=== PATIENT | female | born 1970 | race Caucasian/White ===

== ENCOUNTER → 2018-07-18 16:31 | Outpatient (REF) | payer SELFPAY | LOC: OM 16:31 | PROVIDERS: PCP Nurse Practitioner Family; Visit Provider Nurse Practitioner Family | DX: Z23 Encounter for immunization (principal) ==

== ENCOUNTER 2018-12-27 15:44 | Outpatient (REF) | payer OTHER, SELFPAY ==
--- NOTE | 2018-12-27 14:09 | PAPFT_PTH ---
PATIENT: Viktoriya Serrato LOC: [facility] U#:[id number] AGE/SX: 48/F ROOM: RE12/27/[address]: ELLIOT Trejo : 1970 BED: DIS: 12/27/2018 SPEC #: [id number] RECD: 12/28/18 12:57 STATUS: HAIDER BLACK #: [id number] RENETTA: 12/27/18 14:[address]: Jane Pitt DEPT: FORMERLY [facility], [facility] Cytology RECD BY: Lizet Parsons Tissues: 1 - CX/ENDOCX FOR PAP SMEARS Procedures: PAP THIN PREP/UVM Screening HPV DNA PROBE Comments: [id number]
== END 2018-12-27 16:04 ==
LOC: LBN 15:44
PROVIDERS: PCP Nurse Practitioner Family; Visit Provider Nurse Practitioner Family
DX: Z12.4 Encounter for screening for malignant neoplasm of cervix (principal); Z11.51 Encounter for screening for human papillomavirus (HPV)
CPT/HCPCS: 88142; 87624

== ENCOUNTER 2018-12-28 01:31 | Outpatient (CLI) | payer OTHER, SELFPAY ==
[2018-12-28 11:55] LABS: Anion Gap 10.4 mmol/L (3-11); BUN 16 mg/dL (7-18); CO2 25.6 mmol/L (21.0-32.0); CREATININE 0.84 mg/dL (0.55-1.02); Calcium 8.8 mg/dL (8.5-10.1); Chloride 107 mmol/L (98-107); Cholesterol 193 mg/dL (50-200); Glucose 92 mg/dL (70-100); HDL Cholesterol 54 mg/dL (40-60); LDL CHOLESTEROL 122 mg/dL (<100); Potassium 4.2 mmol/L (3.5-5.1); Sodium 143 mmol/L (136-145); Triglyceride 56 mg/dL (30-150)
== END 2018-12-28 01:51 ==
PROVIDERS: PCP Nurse Practitioner Family; Visit Provider Nurse Practitioner Family
DX: Z00.00 Encounter for general adult medical examination without abnormal findings (principal); Z13.228 Encounter for screening for other metabolic disorders; Z13.220 Encounter for screening for lipoid disorders; Z13.29 Encounter for screening for other suspected endocrine disorder; Z13.1 Encounter for screening for diabetes mellitus
CPT/HCPCS: 36415; 80048; 80061; 83721; 83036; 84439; 84443

== ENCOUNTER 2019-01-05 10:01 | Outpatient (CLI) | payer OTHER, SELFPAY ==
[2019-01-05 11:42] LABS: Bilirubin Negative (Negative); Blood Moderate (Negative); Clarity Cloudy; Glucose Negative (Negative); Ketones Negative (Negative); Leukocyte Esterase Small (Negative); Nitrite Negative (Negative); Specific Gravity 1.015 (1.005-1.025); Urobilinogen 0.2 EU/dL (Up TO 0.2); pH >= 9.0 (5-8)
[2019-01-05 11:56] LABS: Bacteria Moderate HPF (Negative); Epithelial Cells Few HPF (Negative); WBC >50 HPF (0-5)
[2019-01-05 11:57] LABS: C & S Indicated? Yes; Casts Negative LPF (Negative); Crystals Many Triple Phos HPF (Negative); Mucus Negative (Negative)
== END 2019-01-05 10:21 ==
PROVIDERS: PCP Nurse Practitioner Family; Visit Provider Family Medicine
DX: R31.9 Hematuria, unspecified (principal); R35.0 Frequency of micturition
CPT/HCPCS: 87077; 81003; 81015; 87086; 87186

== ENCOUNTER 2019-01-07 00:36 | Outpatient (CLI) | payer OTHER, SELFPAY ==
--- NOTE | 2019-01-07 17:30 | DI.MAMMO_ITS ---
SYMPTOMS/DIAGNOSIS: SCREENING, Z12.31 MAMMOGRAM: Mammograms were interpreted according to the usual protocol including computer analysis with CAD system, tomosynthesis and C view imaging. There are no priors for comparison. Breast density C. No suspicious masses or microcalcifications are seen. There are scattered calcifications seen in the both breasts. The skin and axilla are unremarkable. IMPRESSION: No definite evidence for malignancy. Yearly mammography is recommended. Category 2. MQSA ASSESSMENT OF FINDINGS: Negative with benign findings. Category 2. Patient will receive a letter notifying them of these results. Bi-RADS category C. The breasts are heterogeneously dense, which may obscure small masses.
== END 2019-01-07 00:56 ==
PROVIDERS: PCP Nurse Practitioner Family; Visit Provider Nurse Practitioner Family
DX: Z12.31 Encounter for screening mammogram for malignant neoplasm of breast (principal)
CPT/HCPCS: 77063; 77067

== ENCOUNTER 2019-01-15 12:45 | Outpatient (REF) | payer OTHER, SELFPAY ==
[2019-01-15 13:29] LABS: Bilirubin Negative (Negative); Blood Moderate (Negative); Clarity Sl Cloudy; Glucose Negative (Negative); Ketones Negative (Negative); Leukocyte Esterase Moderate (Negative); Nitrite Negative (Negative); Urobilinogen 0.2 EU/dL (Up TO 0.2)
[2019-01-15 13:47] LABS: WBC >50 HPF (0-5)
[2019-01-15 13:48] LABS: Bacteria Moderate HPF (Negative); C & S Indicated? No/Sq. Contamination; Crystals Negative HPF (Negative); Epithelial Cells Moderate HPF (Negative); Mucus Trace (Negative)
== END 2019-01-15 13:05 ==
LOC: LBN 12:45
PROVIDERS: PCP Nurse Practitioner Family; Visit Provider Family Medicine
DX: R30.0 Dysuria (principal); N39.0 Urinary tract infection, site not specified
CPT/HCPCS: 87077; 81003; 81015; 87086; 87186

== ENCOUNTER 2019-01-23 22:16 | Outpatient (REF) | payer OTHER, SELFPAY ==
[2019-01-23 21:24] LABS: Bilirubin Negative (Negative); Blood Small (Negative); Clarity Clear; Glucose Negative (Negative); Ketones Trace mg/dL (Negative); Leukocyte Esterase Negative (Negative); Nitrite Negative (Negative); Urobilinogen 0.2 EU/dL (Up TO 0.2)
[2019-01-23 21:32] LABS: Bacteria Negative HPF (Negative); C & S Indicated? No; Casts Negative LPF (Negative); Crystals Negative HPF (Negative); Epithelial Cells Few HPF (Negative); Mucus Negative (Negative); Other Cells Negative (Negative)
== END 2019-01-23 22:36 ==
LOC: LBN 22:16
PROVIDERS: PCP Nurse Practitioner Family; Visit Provider Family Medicine
DX: N39.0 Urinary tract infection, site not specified (principal)
CPT/HCPCS: 81003; 81015

== ENCOUNTER 2019-01-30 21:26 | Outpatient (REF) | payer OTHER, SELFPAY ==
[2019-01-30 21:29] LABS: Bilirubin Negative (Negative); Blood Negative (Negative); Clarity Clear; Glucose Negative (Negative); Ketones Negative (Negative); Leukocyte Esterase Negative (Negative); Nitrite Negative (Negative); Urobilinogen 0.2 EU/dL (Up TO 0.2)
== END 2019-01-30 21:46 ==
LOC: NCHCN 21:26
PROVIDERS: PCP Nurse Practitioner Family; Visit Provider Nurse Practitioner Family
DX: R31.9 Hematuria, unspecified (principal)
CPT/HCPCS: 81003

== ENCOUNTER 2019-02-25 19:27 | Outpatient (REF) | payer OTHER, SELFPAY | END 2019-02-25 19:47 | LOC: LBN 19:27 | PROVIDERS: PCP Nurse Practitioner Family; Visit Provider Nurse Practitioner Family | DX: R30.0 Dysuria (principal) | CPT/HCPCS: 87077; 87086; 87186 ==

== ENCOUNTER 2019-03-07 11:55 | Outpatient (REF) | payer OTHER, SELFPAY ==
[2019-03-07 13:03] LABS: Bilirubin Negative (Negative); Blood Negative (Negative); Clarity Clear; Glucose Negative (Negative); Ketones Negative (Negative); Leukocyte Esterase Negative (Negative); Nitrite Negative (Negative); Specific Gravity 1.015 (1.005-1.025); Urobilinogen 0.2 EU/dL (Up TO 0.2)
== END 2019-03-07 12:15 ==
LOC: LBN 11:55
PROVIDERS: PCP Nurse Practitioner Family; Visit Provider Nurse Practitioner Family
DX: N39.0 Urinary tract infection, site not specified (principal)
CPT/HCPCS: 81003

== ENCOUNTER 2019-03-08 11:39 | Outpatient (REF) | payer OTHER, SELFPAY ==
[2019-03-08 12:29] LABS: Bilirubin Negative (Negative); Blood Moderate (Negative); Clarity Sl Cloudy; Glucose Negative (Negative); Ketones Negative (Negative); Leukocyte Esterase Small (Negative); Nitrite Negative (Negative); Specific Gravity 1.025 (1.005-1.025); Urobilinogen 0.2 EU/dL (Up TO 0.2); pH 5.5 (5-8)
[2019-03-08 12:45] LABS: Bacteria Moderate HPF (Negative); C & S Indicated? C&S Done As Ordered; Casts Negative LPF (Negative); Crystals Negative HPF (Negative); Epithelial Cells Few HPF (Negative); Mucus Negative (Negative); RBC >50 (0-2); WBC >50 HPF (0-5)
== END 2019-03-08 11:59 ==
LOC: LBN 11:39
PROVIDERS: PCP Nurse Practitioner Family; Visit Provider Nurse Practitioner Family
DX: N39.0 Urinary tract infection, site not specified (principal)
CPT/HCPCS: 87077; 81003; 81015; 87086; 87186; 87480; 87510; 87660

== ENCOUNTER 2019-03-12 02:02 | Outpatient (CLI) | payer OTHER, SELFPAY ==
--- NOTE | 2019-03-12 11:22 | DI.US_ITS ---
SYMPTOMS/DIAGNOSIS: RECURRENT CYSTITIS; ASSESS FOR RENAL CALCULI, N30.90 RENAL ULTRASOUND: The prevoid bladder volume measures 257 cc. Both the ureteral jets were visualized. No bladder calculi are seen. The postvoid residual measures 5 cc. The right kidney measures 11 cm in length. No right renal calculi or hydronephrosis is seen. The left kidney shows several echogenic foci suspicious for calcifications. One area measures 11 mm in the mid portion of the left kidney. An additional 9 mm calcification is seen. There is no evidence of hydronephrosis or perinephric collection. IMPRESSION: Echogenic foci of the left kidney suspicious for renal calculi.
== END 2019-03-12 02:22 ==
PROVIDERS: PCP Nurse Practitioner Family; Visit Provider Nurse Practitioner Family
DX: N30.90 Cystitis, unspecified without hematuria (principal); N28.89 Other specified disorders of kidney and ureter
CPT/HCPCS: 76770

== ENCOUNTER 2019-04-26 01:41 | Outpatient (CLI) | payer OTHER, SELFPAY ==
--- NOTE | 2019-04-26 09:14 | DI.CT_ITS ---
SYMPTOM/DIAGNOSIS: ACUTE CYSTITIS WITH HEMATURIA N30.01 CT ABDOMEN AND PELVIS: Pre and post contrast CT scan was performed according to the CT urogram protocol. Comparison ultrasound is 03/12/19 There are a few nonobstructing stones seen in the left kidney. The largest is in the upper pole and measures 0.8 cm. No ureterolithiasis or hydronephrosis is identified. The urinary bladder is intact. No bladder stones are present. Contrast was then administered intravenously and venous imaging of the abdomen and pelvis was performed. No acute abnormality is seen in the lung bases. The liver is unremarkable. No suspicious hepatic mass is seen. The portal, superior mesenteric and splenic veins are patent. The gallbladder is negative. There is no biliary ductal dilatation. The pancreas, spleen and adrenal glands are unremarkable. The kidneys show normal and symmetric enhancement. No evidence of a solid renal mass is seen. There is mild cortical scarring of the left kidney. The urinary bladder is intact. The reproductive organs are unremarkable. There is mild arthrosclerosis of the abdominal aorta but no aneurysmal dilatation is present. No significant abdominal or pelvic adenopathy, ascites or pneumoperitoneum is present. The bowel shows no evidence of obstruction or inflammation. There is a normal appendix present. A small fat containing umbilical hernia is present. Degenerative changes are seen in the spine. 7-minute delayed images of the renal collecting system were performed. Note is made of right parapelvic cysts. No filling defects are seen in the collecting system. The urinary bladder is unremarkable without evidence of focal filling defect. IMPRESSION: 1. Left nephrolithiasis, no evidence of obstructive uropathy 2. Right parapelvic cysts. No evidence of a solid renal mass.
[2019-04-26] MEDS: Omnipaque 350 MG/ML 100 ML BTL IV (09:17)
== END 2019-04-26 02:01 ==
PROVIDERS: PCP Nurse Practitioner Family; Visit Provider Urology
DX: N30.01 Acute cystitis with hematuria (principal); N20.0 Calculus of kidney; N28.1 Cyst of kidney, acquired
CPT/HCPCS: 74178; J3490

== ENCOUNTER 2019-06-12 15:46 | Outpatient (REF) | payer OTHER, SELFPAY | END 2019-06-12 16:06 | LOC: LBN 15:46 | PROVIDERS: PCP Nurse Practitioner Family; Visit Provider Nurse Practitioner Family | DX: N30.90 Cystitis, unspecified without hematuria (principal) | CPT/HCPCS: 87077; 87086; 87186 ==

== ENCOUNTER 2019-06-13 06:10 | Day surgery (SDC) | payer OTHER, SELFPAY ==
[2019-06-13 06:34] VITALS: BP 149/90; PULSE 89; RESP 18; TEMP 36.5; O2SAT 95
[2019-06-13] MEDS: Lactated Ringers 1,000 ML 80 ML IV (06:53)
--- NOTE | 2019-06-13 07:07 | W.PM.DSUDISC ---
Discharge Plan Disposition Patient Disposition: HOME Condition: Stable Discharge Details Reason For Visit: surgery Attending Provider: Mau Luther Primary Care Provider: Jane Pitt Home Meds and New Rx's Prescriptions: No Action cephalexin 500 mg capsule 500 mg PO BID 7 Days Qty: 14 RF: 0 Multivitamin Pack RF: 0 Azo Cranberry 250 mg Tablet,Chewable 3 PO DAILY RF: 0 Discharge Instructions Additional Instructions: strain urine and bring fragment to office at followup visit followup with me @ 1 month with KUB at time of appt have patient continue full course of antibiotics as prescribed may use NSAIDS for post operative pain - call office if pain not controlled Activity:: Activity as Tolerated Shower/Bathe:: 24 hours Diet:: As Tolerated Discharge Orders Discharge Orders: Discharge Order (Routine); Ordered 06/13/19 Ordered By: Mau Luther DS: Diagnosis Discharge Diagnosis (1) Kidney stones: Status: Chronic
[2019-06-13] MEDS: ceFAZolin 2 GM/50 ML BAG IVPB (07:39)
[2019-06-13 08:22] VITALS: BP 131/70; PULSE 95; RESP 21; TEMP 36.6; O2SAT 95
[2019-06-13 08:27] VITALS: BP 132/72; PULSE 92; RESP 23; TEMP 36.6; O2SAT 95
[2019-06-13 08:32] VITALS: BP 140/81; PULSE 87; RESP 16; TEMP 36.7; O2SAT 95
[2019-06-13 09:20] VITALS: BP 136/77; PULSE 77; RESP 16; TEMP 36; O2SAT 92
--- NOTE | 2019-06-14 07:34 | ROE_ITS ---
REPORT OF OPERATIVE PROCEDURE DATE OF PROCEDURE June 13, 2019 PREOPERATIVE DIAGNOSIS Left kidney stone. POSTOPERATIVE DIAGNOSIS Left kidney stone. PROCEDURE PERFORMED Left extracorporeal shock wave lithotripsy. SURGEON Mau Luther M.D. ANESTHESIA General. COMPLICATIONS None. ESTIMATED BLOOD LOSS Minimal. HISTORY This is a 48-year-old woman who has a history of recurrent proteus urinary tract infections. On evalu ation, she was found to have a nonobstructing 8-mm stone in the left kidney. She presents now for ESW L. OPERATIVE REPORT The patient is brought to the operating room on 06/13/2019. After successful induction of general an esthesia, she was positioned on the [facility] Lithotripter bed. The stone was visualized using both fluoro scopically and ultrasound. Once the stone was positioned within the focal zone of the lithotripter. T he stone was treated with a total of 2500 shocks. We ranged the power setting from 1 to 20. The stone appeared to fragment quite nicely when it was viewed both fluoroscopically and sonographically. The patient tolerated the procedure well. There were no complications. CC: Jane Pitt M.D.
== END 2019-06-13 09:45 | disposition home or self-care (01) ==
PROVIDERS: PCP Nurse Practitioner Family; Visit Provider Urology
PROC: (CPT 50590; principal; 2019-06-13 07:30)
DX: N20.0 Calculus of kidney (principal); Z87.440 Personal history of urinary (tract) infections
CPT/HCPCS: 50590; J0131; J0690; J1100; J1885; J2250; J2405; J3010

== ENCOUNTER 2019-07-10 00:56 | Outpatient (CLI) | payer OTHER, SELFPAY ==
--- NOTE | 2019-07-10 07:31 | DI.RAD_ITS ---
SYMPTOM/DIAGNOSIS: S/P ESWL, N20.0, CALCULUS OF KIDNEY FPA: A single view was obtained. There is moderate fecal material overlying the kidneys. Possible left upper pole renal calcification versus fecal material. No other significant abnormality is seen.
== END 2019-07-10 01:16 ==
PROVIDERS: PCP Nurse Practitioner Family; Visit Provider Urology
DX: N20.0 Calculus of kidney (principal)
CPT/HCPCS: 74018

== ENCOUNTER 2020-01-31 02:05 | Outpatient (CLI) | payer OTHER, SELFPAY ==
--- NOTE | 2020-01-31 07:45 | DI.RAD_ITS ---
EXAM: 2D digital imaging was performed. CLINICAL HISTORY: monitor stone after ESWL. COMPARISON: CT ABDOMEN PELVIS WO/W from 04/26/2019 XR ABDOMEN FLAT PLATE from 07/10/2019 XR ABDOMEN FLAT PLATE from 07/10/2019 TECHNIQUE: Supine views of the abdomen performed. FINDINGS: BOWEL GAS PATTERN: Nondistended. CALCIFICATIONS: There is a calcification in the left upper quadrant just superior to the 12th rib reyna picious for a renal stone. No other urinary tract calculi are identified. The right kidney is large ly obscured due to overlying bowel. OSSEOUS STRUCTURES: Normal for age. OTHER FINDINGS: None. IMPRESSION: 1. Nonobstructive bowel gas pattern. 2. Calcification in the left upper quadrant suspicious for renal stone. It appears unchanged compared to the examination from 07/10/2019. DATA REPOSITORY: RADIATION DOSE DELIVERED:
== END 2020-01-31 02:25 ==
PROVIDERS: PCP Nurse Practitioner Family; Visit Provider Urology
DX: N20.0 Calculus of kidney (principal)
CPT/HCPCS: 74018

== ENCOUNTER 2020-03-29 19:24 | Emergency (ER) | payer OTHER, SELFPAY ==
[2020-03-29 19:30] VITALS: BP 164/107; PULSE 118; RESP 16; TEMP 36.7; O2SAT 97
--- NOTE | 2020-03-29 19:36 | ED.GENADUL_ITS ---
Discharge Plan Disposition Patient Disposition: HOME Condition: Stable Discharge Details Chief Complaint: Laceration Clinical Impression: Laceration of thumb Primary Care Provider: Jane Pitt ED Provider: Deana Garza Home Meds and New Rx's Prescriptions: No Action Multivitamin Pack 1 tab PO DAILY RF: 0 Discharge Instructions Instructions: Laceration (ED) Additional Instructions: Leave dressing in place for the first 12 to 24 hours. Tomorrow you can wash wound under running soap and water. No soaking. Allow to air dry for 1 to 2 hours every day. You may apply bacitracin ointment for the first 1 to 2 days. Return if any signs of infection increased redness, swelling or red streaks. Have sutures removed in 7 to 10 days be seen sooner if any worsening or concerns. Please take Tylenol or Ibuprofen with food every 4-6 hours as needed for pain and swelling. Referrals: Jane Pitt, [employer] BAIT PROCESSING SUPERVISOR [Primary Care Provider] - Discharge Data Discharge Date/Time-TO BE ENTERED AT DEPARTURE: 03/29/20 20:50 Medical Decision Making 49-year-old female presents with left thumb laceration. This occurred proximately 45 minutes prior to arrival while cutting lettuce. She has full range of motion noted to her thumb she is up-to-date on her tetanus vaccination had 1 last year. There is approximately 3 cm crescent shaped laceration with flap noted to the thumb pad. Bleeding controlled with pressure. Anesthesia achieved and turnicot applied for approximately 12 minutes. 5 simple interrupted sutures placed. Turnicot removed and nonadherent dressing applied. Discussed with patient to have sutures removed in 7 to 10 days given red flags to watch for and strict return instructions. Verbalized understanding. This text was generated using [employer] system, please disregard any oddities of phrase or misspellings. HPI General Mode of arrival: ambulatory . Date/Time Provider Initiated Documentation: 03/29/20 19:32 . Limitations to Documentation: no limitations . Information obtained by: patient . History of Present Illness 49 year old F presents to the emergency department with the chief complaint of Thumb laceration, described as moderate, with intensity rated at 7. Quality is described as sharp, and is localized to the left and upper extremity (thumb). Patient reports no radiation. Patient started experiencing this minute(s) (45) and it has been constant. Immobilization improves symptom(s), and other things that improve symptom(s), (Pressure) Movement worsens symptoms . Patient notes no other symptoms.. Patient did receive the following treatments prior to arrival, other (Applied pressure) HPI Narrative: 49-year-old female presents with left thumb laceration which occurred approximately 45 minutes prior to arrival. Patient states she was cutting some lettuce with a serrated knife. Related Data Home Medications Medication Instructions Recorded Confirmed Multivitamin Pack 1 tab PO DAILY 06/11/19 03/29/20 Allergies Allergy/AdvReac Type Severity Reaction Status Date / Time environmental Allergy Uncoded 06/13/19 06:25 General Stated Complaint: Laceration CLAUDIA: 4 Review of Systems Narrative: Constitutional: Negative for weight loss, alert and oriented, well groomed, normal body habitus, appears comfortable. Chest: Denies chest pain, palpitations, irregular rhythm, hypertension. Respiratory: Denies Shortness of breath, cough, hemoptysis. GI: Denies abdominal pain, nausea, vomiting, diarrhea, constipation. Integumentary/Breasts Skin/Breast: Reports as per HPI [facility] Medical History Carpal tunnel syndrome of right wrist (Resolved) Hyperlipidemia (Chronic) Kidney stones (Chronic) Prediabetes (Chronic) Proteus infection (Acute) Thoracic outlet syndrome (Resolved) Surgical History section (Inactive 12/13/93) Open Carpal Tunnel release (Inactive ~1988) Right Right rib resection (Inactive ~1988) [place] tooth extraction (Inactive) Family History Mother , at 62 from MVA No problems noted. Father Heart disease Myocardial infarction Sister Endometriosis Sister No problems noted. Brother No problems noted. Son No problems noted. Son No problems noted. Daughter No problems noted. Maternal Grandfather Colon cancer Maternal Grandmother No problems noted. Paternal Grandfather Skin cancer Paternal Grandmother Parkinson disease Social History Smoking/Tobacco Use Status: Former Tobacco Use Quit Date: 11/20/93 Second Hand Exposure: Yes Alcohol Intake: current Alcohol Intake frequency: holidays/special occasions only Alcohol type: hard liquor Drug use: Never Substance use type: does not use Caregiver/Support person: No Household members: spouse and children Housing: house Pets and animals: Yes Pets and animals: cat(s), dog(s) and horse(s) Sexually active: Yes Do you think of yourself as: straight/heterosexual Current gender identity: female What is your relationship status?: How often do you talk on the phone with friends or family?: three or more times per week How often do you get together with friends or relatives?: three or more times per week How often do you attend faith or buddhist services?: 4 or more times per year Do you belong to any clubs or organized social groups?: no Panel score (0-1 are the most socially isolated patients): 3 What type of physical activity do you participate in: walking and yoga Duration: 30-45 minutes/day Frequency: 5-6 times per week Katelynn/Moravian: Roman Catholic Special katelynn needs: No Do you feel safe at home: Yes Do you feel safe in your relationship?: Yes History History 3 Para Hx # Term Pregnancies Multiple births Hx # Pregnancies Ectopic pregnancies AB induced Hx Number of Living Children 3 AB spontaneous Exam Narrative Exam Narrative: Constitutional: Alert and oriented x3. Appears stated age. Normal body habitus. Head: Normocephalic, no trauma. Eyes: Pupils PERRLA, Red reflex noted, EOM's intact. Eyelids symmetrical without lesions, discharge, or swelling. ENT: Bilateral TM's WNL, External ear normal to inspection, no mastoid TTP, swelling, or erythema, Nasal turbinates WNL, no nasal discharge. Normal dentition, Posterior pharynx WNL, no exudate. Chest: RRR, Normal S1, S2, distal pulses intact. Resp: Lungs clear to auscultation bilaterally, no wheezes, rales, or rhonchi. Musculoskeletal: Normal gait, 5/5 strength to all four extremities. Skin: Approximately 2 to 2-1/2 cm laceration noted to the anterior thumb pad, actively bleeding, bleeding controlled with pressure. Neurologic: Cranial nerves II-XII intact. Alert and oriented x 3. DTR's intact. Hematologic/Lymphatic: No ecchymosis, no lymphadenopathy. Skin Trauma: laceration left anterior thumb Course Vital Signs Vital signs: Vital Signs Temperature 36.7 C 03/29/20 19:30 Pulse 118 H 03/29/20 19:30 Respiratory Rate 16 03/29/20 19:30 Blood Pressure 164/107 H 03/29/20 19:30 Pulse Oximetry 97 03/29/20 19:30 Temperature 36.7 C 03/29/20 19:30 Temperature Source Skin 03/29/20 19:30 Pulse 118 H 03/29/20 19:30 Respiratory Rate 16 03/29/20 19:30 Blood Pressure 164/107 H 03/29/20 19:30 Blood Pressure Position Sitting 03/29/20 19:30 Pulse Oximetry 97 03/29/20 19:30 Pain Level 3 03/29/20 19:30 Procedures Laceration Laceration 1: Site: hand (Left thumb) Side (If applicable): left Size (cm): 3 Description: flap, irregular and clean Depth: simple, single layer Local Anesthetic: Lidocaine 1% and other anesthetic (Bleeding controlled with a turnicot finger tourniquet was in place for approximately 12 minutes) Amount of anesthesia used (mL): 3 Pre-repair: wound explored, irrigated extensively and deep structures intact (Sensation and circulation returned upon removing the turnicot) Skin layer closed with: nylon Size (cm): 4-0 Number of sutures: 5 Technique: simple, interrupted
[2020-03-29] MEDS: Lidocaine 1% Multi-Dose 50 ML VIAL IJ (20:30)
== END 2020-03-29 20:50 | disposition home or self-care (01) ==
PROVIDERS: Emergency Provider Registered Nurse Emergency; PCP Nurse Practitioner Family
DX: S61.012A Laceration without foreign body of left thumb without damage to nail, initial encounter (principal); W26.0XXA Contact with knife, initial encounter; Y93.G1 Activity, food preparation and clean up
CPT/HCPCS: 12002

== ENCOUNTER 2020-04-07 16:36 | Emergency (ER) | payer OTHER, SELFPAY ==
[2020-04-07 16:39] VITALS: BP 167/93; PULSE 84; TEMP 36.7; O2SAT 99
--- NOTE | 2020-04-07 16:54 | ED.GENADUL_ITS ---
Discharge Plan Disposition Patient Disposition: HOME Condition: Stable Discharge Details Chief Complaint: SutureRem Clinical Impression: Encounter for removal of sutures Primary Care Provider: Jane Pitt ED Provider: Cesar Ortega Home Meds and New Rx's Prescriptions: No Action Multivitamin Pack 1 tab PO DAILY RF: 0 Discharge Instructions Instructions: Stitches Removal (ED) Additional Instructions: Sutures removed without difficulty. Keep the area clean and dry, you may change into the dressing daily. I do recommend wearing thumb splint for the next 3-5 days to avoid opening up the laceration. Please watch for new or worsening symptoms and return to the ER for any concerns Medical Decision Making Presents for a suture removal. Patient is neuro, vascular, tendon intact. 4 sutures intact, lacerations well approximated no signs of infection. 4 sutures removed without difficulty. Wound stayed well approximated. Given the location of the laceration over the PIP joint, will apply a thumb splint. Wound was dressed and thumb splint applied. Patient has no additional questions or concerns. Medical Records Medical records reviewed: Yes I reviewed the patient's medical records. HPI General Mode of arrival: ambulatory . Date/Time Provider Initiated Documentation: 04/07/20 16:54 . Limitations to Documentation: no limitations . Information obtained by: patient . HPI Narrative: 49-year-old female who presents for suture removal from her left thumb. Sutures were placed 8 days ago, a single suture fell out yesterday on its own. Currently asymptomatic, denies fever, chills, numbness, tingling, weakness, redness, wound discharge. Related Data Home Medications Medication Instructions Recorded Confirmed Multivitamin Pack 1 tab PO DAILY 06/11/19 03/29/20 Allergies Allergy/AdvReac Type Severity Reaction Status Date / Time environmental Allergy Uncoded 06/13/19 06:25 General Stated Complaint: SutureRem CLAUDIA: 5 Review of Systems Constitutional Constitutional: Denies fever(s) and Denies weakness Musculoskeletal Musculoskeletal: Denies numbness and Denies tingling Integumentary/Breasts Skin/Breast: Denies rash Neurologic Neurologic: Denies numbness, Denies tingling and Denies weakness [facility] Medical History Carpal tunnel syndrome of right wrist (Resolved) Hyperlipidemia (Chronic) Kidney stones (Chronic) Prediabetes (Chronic) Proteus infection (Acute) Thoracic outlet syndrome (Resolved) Surgical History section (Inactive 12/13/93) Open Carpal Tunnel release (Inactive ~1988) Right Right rib resection (Inactive ~1988) [place] tooth extraction (Inactive) Family History Mother , at 62 from MVA No problems noted. Father Heart disease Myocardial infarction Sister Endometriosis Sister No problems noted. Brother No problems noted. Son No problems noted. Son No problems noted. Daughter No problems noted. Maternal Grandfather Colon cancer Maternal Grandmother No problems noted. Paternal Grandfather Skin cancer Paternal Grandmother Parkinson disease Social History Smoking/Tobacco Use Status: Former Tobacco Use Quit Date: 11/20/93 Second Hand Exposure: Yes Alcohol Intake: current Alcohol Intake frequency: holidays/special occasions only Alcohol type: hard liquor Drug use: Never Substance use type: does not use Caregiver/Support person: No Household members: spouse and children Housing: house Pets and animals: Yes Pets and animals: cat(s), dog(s) and horse(s) Sexually active: Yes Do you think of yourself as: straight/heterosexual Current gender identity: female What is your relationship status?: How often do you talk on the phone with friends or family?: three or more times per week How often do you get together with friends or relatives?: three or more times per week How often do you attend spiritism or yazdanism services?: 4 or more times per year Do you belong to any clubs or organized social groups?: no Panel score (0-1 are the most socially isolated patients): 3 What type of physical activity do you participate in: walking and yoga Duration: 30-45 minutes/day Frequency: 5-6 times per week Katelynn/Rastafari: Moravian Special katelynn needs: No Do you feel safe at home: Yes Do you feel safe in your relationship?: Yes History History 3 Para Hx # Term Pregnancies Multiple births Hx # Pregnancies Ectopic pregnancies AB induced Hx Number of Living Children 3 AB spontaneous Exam Extrem Left upper extremity: hand Details: laceration (Thumb, well approximated, no signs of infection, 4 sutures) Course Vital Signs Vital signs: Vital Signs Temperature 36.7 C 04/07/20 16:39 Pulse 84 04/07/20 16:39 Blood Pressure 167/93 H 04/07/20 16:39 Pulse Oximetry 99 04/07/20 16:39 Temperature 36.7 C 04/07/20 16:39 Temperature Source Temporal Artery Scan 04/07/20 16:39 Pulse 84 04/07/20 16:39 Respiratory Effort Non-Labored 04/07/20 16:42 Blood Pressure 167/93 H 04/07/20 16:39 Blood Pressure Position Sitting 04/07/20 16:39 Pulse Oximetry 99 04/07/20 16:39 Oxygen Delivery Method Room Air 04/07/20 16:39 Oxygen Flow Rate 0 04/07/20 16:39 Pain Level 0 04/07/20 16:39
== END 2020-04-07 16:58 | disposition home or self-care (01) ==
LOC: ER 17:04
PROVIDERS: Emergency Provider Physician Assistant; PCP Nurse Practitioner Family
DX: S61.012D Laceration without foreign body of left thumb without damage to nail, subsequent encounter (principal); W26.0XXD Contact with knife, subsequent encounter; Z48.01 Encounter for change or removal of surgical wound dressing

== ENCOUNTER 2020-05-27 01:55 | Outpatient (CLI) | payer OTHER, SELFPAY ==
--- NOTE | 2020-05-27 13:18 | DI.MAMMO_ITS ---
EXAM: MAMMO SCREENING CLINICAL HISTORY: screening TECHNIQUE: Mammograms were interpreted according to the usual protocol including computer analysis w [employer] CAD system, tomosynthesis and C-view imaging. COMPARISON: 2019 FINDINGS: The breasts are composed of heterogeneously dense fibroglandular densities, Breast Density category C . No suspicious masses or suspicious microcalcifications are seen. Benign, milk of calcium type calci fications are seen in the upper outer quadrant of the left breast, unchanged. No skin thickening or abnormal axillary lymph nodes are seen. There has been no significant change from prior exams. IMPRESSION: BI-RADS Category 2 - Benign Findings. Yearly screening mammography is recommended. Breast Density Category C, heterogeneously dense tissue which decreases the sensitivity of the mammog lore. The mammogram demonstrates the patient's breast tissue is dense. Dense breast tissue is very common a nd is not abnormal but dense breast tissue can make it harder to find cancer on a mammogram. Also, de nse breast tissue may increase breast cancer risk. This information about the result of the mammogram report was provided to the patient to raise their awareness. Use this report when you speak with the patient about their risks for breast cancer, which includes their family history. At that time, you may recommend additional screening tests (Ultrasound or MRI) as they might be useful based on their r isk. A negative radiographic report should not delay biopsy if a dominant or clinically suspicious mass is present. Up to ten percent of cancers are not identified on mammography. A negative report may reinforce clinical impression. Adenosis and dense breasts may obscure an underlying neoplasm. False positive reports average 6 to 10%.
== END 2020-05-27 02:15 ==
PROVIDERS: PCP Nurse Practitioner Family; Visit Provider Nurse Practitioner Family
DX: Z12.31 Encounter for screening mammogram for malignant neoplasm of breast (principal)
CPT/HCPCS: 77063; 77067

== ENCOUNTER 2020-07-31 04:16 | Outpatient (CLI) | payer OTHER, SELFPAY ==
--- NOTE | 2020-07-31 08:10 | DI.RAD_ITS ---
EXAM: 2D digital imaging was performed. CLINICAL HISTORY: monitor known stone,N20.0,CALCULUS OF KIDNEY. COMPARISON: CT CT ABDOMEN PELVIS WO/W from 04/26/2019 TECHNIQUE: Supine views of the abdomen performed. FINDINGS: BOWEL GAS PATTERN: Nondistended. CALCIFICATIONS: A 5 millimeter stone is again noted in the mid left kidney. No additional calculi ar e visible. OSSEOUS STRUCTURES: Normal for age. OTHER FINDINGS: The visualized portions of the lung bases appear clear. IMPRESSION: 1. Nonobstructive bowel gas pattern. 2. Stable size and location of left renal calculus. DATA REPOSITORY: RADIATION DOSE DELIVERED:
== END 2020-07-31 04:36 ==
PROVIDERS: PCP Nurse Practitioner Family; Visit Provider Urology
DX: N20.0 Calculus of kidney (principal)
CPT/HCPCS: 74018

== ENCOUNTER 2020-09-28 18:24 | Outpatient (CLI) | payer OTHER, SELFPAY ==
--- NOTE | 2020-09-28 14:49 | DI.RAD_ITS ---
EXAM: XR ABDOMEN FLAT PLATE CLINICAL HISTORY: monitoring left kidney stone,h/o renal calculi, z87.442 TECHNIQUE: COMPARISON: CR XR ABDOMEN FLAT PLATE from 07/31/2020 FINDINGS: Two views were obtained. Previously described 5 millimeter left renal calculus again noted overlying left renal midpole. Right kidney is mostly obscured by fecal material. No additional urinary tract calcifications seen. IMPRESSION: RADIATION DOSE DELIVERED: Total DLP
== END 2020-09-28 18:44 ==
PROVIDERS: PCP Nurse Practitioner Family; Visit Provider Nurse Practitioner Gerontology
DX: N20.0 Calculus of kidney (principal); Z87.442 Personal history of urinary calculi
CPT/HCPCS: 74018

== ENCOUNTER 2021-03-16 13:33 | Outpatient (REF) | payer OTHER, SELFPAY | END 2021-03-16 13:34 | disposition home or self-care (01) | LOC: LBN 13:33 | PROVIDERS: PCP Nurse Practitioner Family; Visit Provider Nurse Practitioner Family | DX: R30.0 Dysuria (principal) | CPT/HCPCS: 87077; 87086; 87186 ==

== ENCOUNTER 2021-03-30 14:39 | Outpatient (REF) | payer OTHER, SELFPAY | END 2021-03-30 14:40 | disposition home or self-care (01) | LOC: LBN 14:39 | PROVIDERS: PCP Nurse Practitioner Family; Visit Provider Nurse Practitioner Family | DX: R82.998 Other abnormal findings in urine (principal); Z87.440 Personal history of urinary (tract) infections | CPT/HCPCS: 87086 ==

== ENCOUNTER 2021-08-02 13:14 | Outpatient (CLI) | payer OTHER, SELFPAY ==
--- NOTE | 2021-08-02 12:25 | DI.RAD_ITS ---
Exam(s) XR ABDOMEN FLAT PLATE EXAM: 2D digital imaging was performed. CLINICAL HISTORY: monitor known left stone n20.0 calculus of kidney. COMPARISON: CR XR ABDOMEN FLAT PLATE from 09/28/2020 TECHNIQUE: Supine views of the abdomen performed. FINDINGS: BOWEL GAS PATTERN: Nondistended. CALCIFICATIONS: A 5 millimeter calcification again projects in the mid left kidney. No additional st ones are visible. OSSEOUS STRUCTURES: Normal for age. OTHER FINDINGS: None. IMPRESSION: 1. Nonobstructive bowel gas pattern. 2. 5 millimeter left renal calculus, unchanged. DATA REPOSITORY: RADIATION DOSE DELIVERED:
== END 2021-08-02 13:34 ==
PROVIDERS: PCP Nurse Practitioner Family; Visit Provider Urology
DX: N20.0 Calculus of kidney (principal)
CPT/HCPCS: 74018

== ENCOUNTER 2021-10-08 02:38 | Outpatient (CLI) | payer OTHER, SELFPAY ==
[2021-10-08 10:16] LABS: Source Nasal/Nares
[2021-10-08 13:06] LABS: COVID-19 PCR Negative (Negative)
== END 2021-10-08 02:39 | disposition home or self-care (01) ==
PROVIDERS: Surgery; PCP Nurse Practitioner Family; Visit Provider Orthopaedic Surgery
DX: Z20.822 Contact with and (suspected) exposure to COVID-19 (principal); Z01.818 Encounter for other preprocedural examination
CPT/HCPCS: 87635

== ENCOUNTER 2021-10-11 06:16 | Day surgery (SDC) | payer OTHER, SELFPAY ==
--- NOTE | 2021-10-10 14:31 | W.ANESPRE ---
General Info Date of Service Date Performed: 10/11/21 Height: 5 ft 5 in Weight: 99.337 kg Body Mass Index (BMI): 36.4 Surgical Procedure: Operation Date: 10/11/21 07:35 Proposed Procedures Side Surgeon p Colonoscopy Stacy Blanca MD Meds Allergies and Home Medications Allergies Allergy/AdvReac Type Severity Reaction Status Date / Time environmental Allergy Uncoded 10/11/21 06:23 Home Medication Medication Instructions Recorded Multivitamin Pack 1 tab PO DAILY 06/11/19 Current Visit Medications: Current Medications Generic Name Dose Route Start Last Admin Trade Name Freq PRN Reason Stop Dose Admin Ringer's Solution 1,000 mls @ 80 mls/hr 10/11/21 06:00 IV 11/07/21 23:59 INFUSION JOSEFINA IV Miscellaneous Supplies 1 each 10/11/21 06:00 Iv Access IV 11/07/21 23:59 DIRECTED JOSEFINA Sodium Chloride 0 ml 10/11/21 06:00 Normal Saline Flush 10 Ml Syr IV 11/07/21 23:59 PRN PRN Sodium Chloride 0 ml 10/11/21 06:00 Normal Saline 10 Ml Vial IJ 11/07/21 23:59 DIRECTED PRN Sterile Water 0 ml 10/11/21 06:00 Water,Injection,Sterile 10 Ml Vial IJ 11/07/21 23:59 DIRECTED PRN PFSH Active Problems Active Problems: Problem Status Onset Code Screening for colon cancer Z12.11 ROSSANA (stress urinary incontinence, female) N39.3 Encounter for immunization Z23 Proteus infection A49.8 Kidney stones N20.0 Encounter for screening colonoscopy Z12.11 Prediabetes R73.03 Hyperlipidemia E78.5 Medical History Active Problem List Screening for colon cancer (Acute) ROSSANA (stress urinary incontinence, female) (Acute) Encounter for immunization (Acute) Proteus infection (Acute) Kidney stones (Chronic) Encounter for screening colonoscopy (Acute) Prediabetes (Chronic) Hyperlipidemia (Chronic) Medical History Carpal tunnel syndrome of right wrist Thoracic outlet syndrome Surgical History Surgical History section (12/13/93) Open Carpal Tunnel release (~1988) Right Right rib resection (~1988) [place] tooth extraction Tobacco Smoking/Tobacco Use Status: Former Tobacco Use Second hand exposure: Yes Alcohol Alcohol Intake: current Alcohol intake frequency: holidays/special occasions only Alcohol type: hard liquor Substance Use Substance use: Never Substance use type: does not use Prental History History 3 Para Hx # Term Pregnancies Multiple births Hx # Pregnancies Ectopic pregnancies AB induced Hx Number of Living Children 3 AB spontaneous Vital Signs and Lab Results Vital Signs Most Recent Vital Signs in EMR: Temp Pulse Resp BP Pulse Ox 36.2 C L 84 18 128/76 95 10/11/21 06:30 10/11/21 06:30 10/11/21 06:30 10/11/21 06:30 10/11/21 06:30 Lab Results Blood Type / Crossmatch: No Data to Display Complete Blood Count: No Data to Display Complete Metabolic Panel: No Data to Display Liver Function Panel: No Data to Display Coagulation Panel: No Data to Display Cardiac Panel: No Data to Display Arterial Blood Gas: No Data to Display Venous Blood Gas: No Data to Display Pancreas Panel: No Data to Display Thyroid Panel: No Data to Display Infectious Disease: Coronavirus (COVID-19)(PCR) Negative (Negative) 10/08/21 09:00 10/08/21 Coronavirus 2019 Source Nasal/Nares 10/08/21 09:00 10/08/21 Blood Cultures: No Data to Display Toxicology Panel: No Data to Display Panel: No Data to Display Anesthesia Assessment and Plan Anesthesia History Personal History: No History of Anesthesia Complications Family History: No Family History of Anesthesia Complications Exercise Tolerance Exercise Tolerance: Metabolic Equivalents>4 Cardiac & Pulmonary Exam Cardiac Exam: Normal S1/S2 Heart Sounds Pulmonary Exam: Clear Bilateral Breath Sounds Implantable Cardiac Device Does patient have a Pacemaker or an ICD?: No Airway Exam Known Difficult Airway: No Mallampati Class: 2 Mouth Opening: Normal (> 3cm) Thyromental Distance: Greater than 3 cm Neck Range of Motion: Full ROM Neck Circumference: Thick Teeth Condition: Normal Dentition ASA Classification ASA Score: ASA 2 Emergency Case?: No NPO Status NPO Status: NPO Clears >2 hours, Solids >8 hours Status Status: Not Relevant due to Medical History Anesthesia Plan Resuscitation Status: Full Code Anesthesia Technique: General Anesthesia Airway Planned: Natural Airway Monitors Used: Standard Monitors Preoperative Comments:: 50 yo female for colo. Sig PMHx: thoracic outlet syndrome (rib resection), former smoker. Previous Anes: LMA 4 for ESWL.
--- NOTE | 2021-10-11 06:26 | W.COLOREPORT ---
Colonoscopy Report Date of procedure: 10/11/21 Pre-op diagnosis general: Colon Cancer Screening Post-op diagnosis procedure note: other (colorectal polyps and mild diverticulosis) Procedure: Colonoscopy with polypectomy Surgeon: Stacy Blanca Anesthesia Type: General:No Airway (Santiago Torres CRNA) Estimated blood loss (mL): 3 Pathology: other (Ascending, transverse, sigmoid and rectal polyp) Complications: None Disposition: same day Indications: The patient is here for Colonoscopy pre-op. Her last screening was 25 years ago and was unremarkable. Question of possible family history of colon cancer in her maternal grandfather. She has not had any bowel habit changes. -Discussed colonoscopy bowel prep as well as the procedure. Discussed possible complications of the procedure to include bleeding, pain, perforation, missed small lesion/polyp, sore throat, aspiration and adverse reaction to the medications. Questions were answered to patient?s satisfaction. No guarantees were implied or given. Prep: Miralax/Dulcolax Procedure Start Time: 07:30 Procedure End Time: 07:59 Retraction Time: 12 minutes Findings: 4 small polyps and mild sigmoid diverticulosis Procedure Description: After informed consent was obtained the patient was taken to the procedure room and placed in a left decubitous position. Monitors were applied and a time out was done. The patients name, date of , procedure, allergies to medications and metal in their body was reviewed. The patient was then sedated. Once sedated and comfortable a rectal exam was done. External exam was normal. Internal exam revealed a normal sphincter tone and no palpable masses. The scope was then introduced and retro-flexed. No internal hemorrhoids, polyps or masses were identified on retro-flexion. The scope was then advanced to the cecum with some difficulty. The patient had to be placed on her back in order to get the scope to move into the cecum. The ileocecal vlave and appendiceal orifice were identified. The prep was good. The scope was then slowly retracted over 12 minutes back into the rectum. Polyps were removed with cold forceps in the ascending, transverse, sigmoid colon and rectum. All 4 polyps were <10 mm in size. There was mild sigmoid diverticulosis noted. The scope was removed and the patient was woken up and taken back to Same day surgery in stable condition. The patient tolerated the procedure well and there were no immediate complications. Follow up: The patient should follow up in 5 years unless they develop changes in bowel habits or other new gastrointestinal complaints.
--- NOTE | 2021-10-11 06:28 | PDOC.DSDIS_ITS ---
Discharge Plan Disposition Patient Disposition: HOME Condition: Stable Discharge Details Reason For Visit: Colonoscopy Attending Provider: Stacy Blanca Primary Care Provider: Jane Pitt Home Meds and New Rx's Prescriptions: Continued Multivitamin Pack 1 tab PO DAILY RF: 0 Discharge Instructions Instructions: Diverticulosis (DC), Colorectal Polyps (DC) Additional Instructions: Findings: 4 small polyps mild diverticulosis Follow up: 5 years Please call if you develop: fevers >101.5 Nausea or Vomiting Abdominal pain that is not transient Rectal bleeding that is more then a tbsp A hard abdomen and inability to pass gas DAY SURGERY UNIT POST ENDOSCOPY INSTRUCTIONS Instructions for everyone who is given Anesthesia: For your safety, please do the following for the next 24 Hours: a. Do not drive or operate dangerous equipment b. Do not drink alcohol beverages or use any recreational drugs for the first 24 hours or while taking pain medications. The medications in your body may have a reaction that can be dangerous. c. Do not make any important decisions or sign any important papers 1. Generally there are no restrictions on your activity after a day or so has gone by, but you may feel a bit fatigued for a few days. 2. After you arrive home you may have a light meal and return to a normal diet as you can tolerate it without feeling sick to your stomach. 3. After surgery, you may feel pain or discomfort. This should be only transien t, but if it persists please contact your doctor. 4. If there are any questions regarding the findings of your procedure, please feel free to contact your doctor. 6. If you are unable to contact your doctor with a problem, contact the hospital at [phone]. 7. Continue all your regular medications unless directed otherwise. I understand the above instructions and have no questions. Signature of Patient or Responsible Adult Escort Date/Time Name of Responsible Adult Escort Signature of Nurse Date/Time Activity:: Activity as Tolerated Diet:: high fiber diet Discharge Orders Discharge Orders: Discharge Order (Routine); Ordered 10/11/21 Ordered By: Stacy Blanca
[2021-10-11 06:30] VITALS: BP 128/76; PULSE 84; RESP 18; TEMP 36.2; O2SAT 95
[2021-10-11 06:55] VITALS: BMI 36.4
[2021-10-11] MEDS: Lactated Ringers 1,000 ML 80 ML IV (06:57)
--- NOTE | 2021-10-11 07:46 | BOWEL_PTH ---
PATIENT: Viktoriya Serrato LOC: [facility] U#:[id number] AGE/SX: 50/F ROOM: RE10/11/[address]: Stacy Blanca MD : 1970 BED: DIS: 10/11/2021 SPEC #: [id number] RECD: 10/11/21 12:51 STATUS: HAIDER REQ #: [id number] RENETTA: 10/11/21 07:[address]: Stacy Blanca DEPT: Surgical Specimen RECD BY: Lizet Parsons ENTERED: 10/11/21 12:52 SP TYPE: Bowel OTHR DR: ELLIOT Trejo Tissues: 1 - BIOPSY BOWEL 2 - BIOPSY BOWEL 3 - BIOPSY BOWEL 4 - BIOPSY BOWEL Procedures: GROSS AND MICRO LEVEL 4 Comments: [id number]
--- NOTE | 2021-10-11 08:08 | W.ANESPOSTOP ---
Postoperative Evaluation Date, Time and Location Date Performed: 10/11/21 Time Performed: 08:08 Patient Location: Day Surgery Unit Vital Signs Most Recent Imported Vital Signs: Most Recent Vital Signs Temp Pulse Resp BP Pulse Ox 36.2 C L 84 18 128/76 95 10/11/21 06:30 10/11/21 06:30 10/11/21 06:30 10/11/21 06:30 10/11/21 06:30 Most Recent Manually Entered Vital Signs: Adult Blood Pressure: 105/68 Heart Rate: 70 Respirations: 18 Oxygen Saturation (%): 93 Temperature (C): 36 C Pain Score (0-10 Scale): 0 Pain Score Most Recent Pain Score: Most Recent Pain Score Pain Level 0 10/11/21 06:30 Assessment Mental Status: Awake (Alert & Oriented to Patient Baseline) Airway and Respiratory Function: Patent airway with normal (patient baseline) respiratory exam Cardiovascular Function: Hemodynamically Stable Hydration Status: Adequately Hydrated Nausea & Vomiting: No Nausea or Vomiting Pain: Pt. Denies Any Pain Peripheral Nerve Block: Patient did not receive a nerve block
[2021-10-11 08:09] VITALS: BP 105/68; PULSE 70; RESP 18; TEMPC 36; O2SAT 93
[2021-10-11 08:11] VITALS: BP 105/68; PULSE 67; RESP 16; TEMP 36.3; O2SAT 95
[2021-10-11 08:41] VITALS: BP 135/89; PULSE 73; RESP 16; TEMP 36.3; O2SAT 96
== END 2021-10-11 09:15 | disposition home or self-care (01) ==
PROVIDERS: PCP Nurse Practitioner Family; Visit Provider Surgery
PROC: 0DJD8ZZ Inspection of Lower Intestinal Tract, Via Natural or Artificial Opening Endoscopic (ICD-10-PCS; CPT 45378; principal; 2021-10-11 07:30)
DX: Z12.11 Encounter for screening for malignant neoplasm of colon (principal); D12.2 Benign neoplasm of ascending colon; D12.3 Benign neoplasm of transverse colon; K62.1 Rectal polyp; K57.30 Diverticulosis of large intestine without perforation or abscess without bleeding
CPT/HCPCS: 45380; 81025; 88305; J2704

== ENCOUNTER 2022-01-07 12:18 | Outpatient (REF) | payer OTHER, SELFPAY ==
--- NOTE | 2022-01-07 09:30 | PAPFT_PTH ---
PATIENT: Viktoriya Serrato LOC: [facility] U#:[id number] AGE/SX: 51/F ROOM: RE01/07/[address]: ELLIOT Valencia : 1970 BED: DIS: 01/07/2022 SPEC #: [id number] RECD: 01/07/22 13:02 STATUS: OPHELIAGerson REEarl #: [id number] RENETTA: 01/07/22 09:[address]: Alexandra Romo DEPT: REPLACED BY [facility] Cytology RECD BY: Lizet Parsons ENTERED: 01/07/22 13:02 SP TYPE: PAPFT OTHR DR: ELLIOT Trejo Tissues: 1 - CX/ENDOCX FOR PAP SMEARS Procedures: PAP THIN PREP/[facility] Screening HPV DNA PROBE Comments: [id number]
== END 2022-01-07 12:19 | disposition home or self-care (01) ==
LOC: LBN 12:18
PROVIDERS: PCP Nurse Practitioner Family; Visit Provider Nurse Practitioner Family
DX: Z12.4 Encounter for screening for malignant neoplasm of cervix (principal); Z11.51 Encounter for screening for human papillomavirus (HPV)
CPT/HCPCS: 88142; 87624

== ENCOUNTER 2022-01-10 01:38 | Outpatient (CLI) | payer OTHER, SELFPAY ==
--- NOTE | 2022-01-10 07:30 | DI.MAMMO_ITS ---
Exam(s) MAMMO SCREENING EXAM: MAMMO SCREENING CLINICAL HISTORY: screening,Z12.39. TECHNIQUE: Bilateral full field digital CC and MLO mammographic images were obtained with 3D tomosyn thesis and utilizing computer aided detection (CAD). COMPARISON: Prior mammograms were reviewed, the most recent being May 2020. FINDINGS: Fibroglandular tissue is again noted be moderately dense, this somewhat decreasing the sensitivity ma mmogram for finding hidden underlying lesions. There are no new significant radiograph findings in the right breast. In the medial aspect of the left breast there is an asymmetric density located 7 cm in from the nippl e measuring approximately 7 x 5 millimeters. Slightly different appearance than previous although po ssibly projectional. There are no malignant-appearing microcalcification in this region. Benign tootie rocalcifications are noted elsewhere in left breast. There is no significant architectural distortion nor skin thickening-retraction. IMPRESSION: 1. No radiographic evidence of malignancy in right breast. 2. Left breast asymmetric density. Spot compression view and ultrasound are recommended BI-RADS Category 0 - Assessment Incomplete: Need additional imaging evaluation Breast Density - Category C - Heterogeneously dense Breast density Category C or D implies that the patient has dense breast tissue. Dense breast tissue can make it harder to find cancer on a mammogram. Dense breast tissue is also associated with an incr eased risk of breast cancer. This information about the result of the mammogram report was provided to the patient to raise their awareness. Use this report when you speak with the patient about their risks for breast cancer, which includes their family history. At that time, you may recommend additional screening tests (Ultrasoun d or MRI) as these tests may add significant information. A negative radiographic report should not delay biopsy if a dominant or clinically suspicious mass is present. Up to ten percent of cancers are not identified on mammography. A negative report may reinforce clinical impression. Adenosis and dense breasts may obscure an underlying neoplasm. False positive reports average 6 to 10%. Patient will receive a letter notifying them of these results.
== END 2022-01-10 01:58 ==
PROVIDERS: PCP Nurse Practitioner Family; Visit Provider Nurse Practitioner Family
DX: Z12.31 Encounter for screening mammogram for malignant neoplasm of breast (principal); R92.8 Other abnormal and inconclusive findings on diagnostic imaging of breast
CPT/HCPCS: 77063; 77067

== ENCOUNTER 2022-01-21 00:48 | Outpatient (CLI) | payer OTHER, SELFPAY ==
--- NOTE | 2022-01-21 09:30 | DI.US_ITS ---
Exam(s) US BREAST LT LIMITED MG MAMMO SCREEN CALL BACK BI EXAM: MG MAMMO SCREEN CALL BACK BI and U/S breast LT limited CLINICAL HISTORY: ASYMMETRIC DENSITY, 7 X 5 MM, 7 CM FROM NIPPLE, LT BREAST. TECHNIQUE: Craniocaudal and mediolateral oblique Full Field Digital Mammography views of the left br east with Computer Aided Diagnosis followed by Tomosynthesis and left breast ultrasound. COMPARISON: Comparison is made with prior examinations. FINDINGS: Mammography/Tomosynthesis: Masses/Architectural Distortion: The area of concern in the medial left breast does not persist on th e additional views. Microcalcifictions: No suspicious pleomorphic-type are seen. Skin Thickening/Nipple Retraction: None. Limited left breast US: Echotexture: Normal appearance of the glandular tissue. Shadowing: No suspicious foci. Cyst: None. Solid lesions: None seen. Ductal dilation: None. IMPRESSION: 1. No evidence of malignancy is noted. 2. Unless there is more urgent need, follow-up screening mammography is recommended, as per [employer] guidelines. 3. The findings were discussed with the patient on the date of the examination. BI-RADS Category 1 - Negative Breast Density - Category C - Heterogeneously dense Breast density Category C or D implies that the patient has dense breast tissue. Dense breast tissue can make it harder to find cancer on a mammogram. Dense breast tissue is also associated with an incr eased risk of breast cancer. This information about the result of the mammogram report was provided to the patient to raise their awareness. Use this report when you speak with the patient about their risks for breast cancer, which includes their family history. At that time, you may recommend additional screening tests (Ultrasoun d or MRI) as these tests may add significant information. A negative radiographic report should not delay biopsy if a dominant or clinically suspicious mass is present. Up to ten percent of cancers are not identified on mammography. A negative report may reinforce clinical impression. Adenosis and dense breasts may obscure an underlying neoplasm. False positive reports average 6 to 10%. Patient will receive a letter notifying them of these results.
== END 2022-01-21 01:08 ==
PROVIDERS: PCP Nurse Practitioner Family; Visit Provider Nurse Practitioner Family
DX: R92.8 Other abnormal and inconclusive findings on diagnostic imaging of breast (principal)
CPT/HCPCS: 76642; 77063; 77067

== ENCOUNTER 2022-02-04 01:39 | Outpatient (CLI) | payer OTHER, SELFPAY ==
[2022-02-04 16:02] LABS: Hemoglobin A1C 6.1 % (<5.7)
[2022-02-04 16:27] LABS: Anion Gap 9.7 mmol/L (3-11); BUN 29 mg/dL (7-18); CO2 26.3 mmol/L (21.0-32.0); CREATININE 0.9 mg/dL (0.55-1.02); Calcium 9.3 mg/dL (8.5-10.1); Chloride 105 mmol/L (98-107); Glucose 117 mg/dL (74-106); Potassium 4.2 mmol/L (3.5-5.1); Sodium 141 mmol/L (136-145); TSH 1.19 uIU/mL (0.36-3.74)
[2022-02-04 16:38] LABS: Calculated LDL 134 mg/dL (<100); Cholesterol 249 mg/dL (<200); HDL Cholesterol 73 mg/dL (40-60); Triglyceride 210 mg/dL (<150)
== END 2022-02-04 01:40 | disposition home or self-care (01) ==
LOC: LBO 01:40
PROVIDERS: PCP Nurse Practitioner Family; Visit Provider Nurse Practitioner Family
DX: E78.5 Hyperlipidemia, unspecified (principal); R73.03 Prediabetes
CPT/HCPCS: 36415; 80048; 80061; 83036; 84439; 84443

== ENCOUNTER 2022-03-24 07:59 | Outpatient (CLI) | payer OTHER, SELFPAY ==
[2022-03-24 10:46] LABS: Source Nasal/Nares
[2022-03-24 14:10] LABS: COVID-19 PCR Negative (Negative)
== END 2022-03-24 08:00 | disposition home or self-care (01) ==
LOC: LBO 07:59
PROVIDERS: PCP Nurse Practitioner Family; Visit Provider Obstetrics & Gynecology
DX: Z20.822 Contact with and (suspected) exposure to COVID-19 (principal)
CPT/HCPCS: 87635

== ENCOUNTER → 2022-08-01 01:45 | Outpatient (CLI) | payer OTHER, SELFPAY ==
--- NOTE | 2022-08-01 12:40 | DI.RAD_ITS ---
Exam(s) XR ABDOMEN FLAT PLATE EXAM: XR ABDOMEN FLAT PLATE CLINICAL HISTORY: Monitoring left renal stone,N20.0. TECHNIQUE: 2D digital imaging was performed. COMPARISON: CR XR ABDOMEN FLAT PLATE from 08/02/2021 FINDINGS: Single AP supine view the abdomen-pelvis, compared to 08/02/2021. The bowel gas pattern is nonspecific in the supine position. Kidneys are partially obscured by fecal stream in the colon. However, there is again noted calcification projected over the left kidney whi ch measures approximately 7 x 5 millimeters, this over the lower pole region of the left kidney. No calcifications seen over the right kidney nor along the course of either ureter. No calcifications i n the urinary bladder. IMPRESSION: 7 x 5 millimeter left kidney calculus noted. Lower pole level. DATA REPOSITORY: RADIATION DOSE DELIVERED:
== END ==
PROVIDERS: PCP Nurse Practitioner Family; Visit Provider Nurse Practitioner Gerontology
DX: N20.0 Calculus of kidney (principal)
CPT/HCPCS: 74018

== ENCOUNTER 2023-03-08 01:24 | Outpatient (CLI) | payer OTHER, SELFPAY ==
--- NOTE | 2023-03-08 07:30 | DI.MAMMO_ITS ---
Exam(s) MAMMO SCREENING EXAM: MAMMO SCREENING CLINICAL HISTORY: screening,z12.39 TECHNIQUE: Bilateral full field digital CC and MLO mammographic images were obtained with 3D tomosyn thesis and utilizing computer aided detection (CAD). COMPARISON: Available for comparison. FINDINGS: Masses/Architectural Distortion: None seen. Microcalcifications: No suspicious pleomorphic-type are seen. Skin Thickening/Nipple Retraction: None. IMPRESSION: 1. No significant interval change with no specific features of malignancy noted. 2. Unless there is more urgent need, screening mammography is recommended, as per [employer] guidelines. BI-RADS Category 1 - Negative Breast Density - Category C - Heterogeneously dense Breast density category C or D implies that the patient has dense breast tissue. Dense breast tissue is very common and is not abnormal but dense breast tissue can make it harder to find cancer on a ma mmogram. Also, dense breast tissue may increase their breast cancer risk. This information about the result of the mammogram report was provided to the patient to raise their awareness. Use this report when you speak with the patient about their risks for breast cancer, which includes their family hist ory. At that time, you may recommend for more screening tests (Ultrasound or MRI) as they might be us eful based on their risk. A negative radiographic report should not delay biopsy if a dominant or clinically suspicious mass is present. Up to ten percent of cancers are not identified on mammography. A negative report may reinforce clinical impression. Adenosis and dense breasts may obscure an underlying neoplasm. False positive reports average 6 to 10%. Patient will receive a letter notifying them of these results.
== END 2023-03-08 01:44 ==
LOC: DI 01:24
PROVIDERS: PCP Nurse Practitioner Family; Visit Provider Obstetrics & Gynecology
DX: Z12.31 Encounter for screening mammogram for malignant neoplasm of breast (principal); R92.2 Inconclusive mammogram
CPT/HCPCS: 77063; 77067

== ENCOUNTER → 2023-07-26 02:26 | Outpatient (CLI) | payer OTHER, SELFPAY ==
--- NOTE | 2023-07-26 12:20 | DI.RAD_ITS ---
Exam(s) XR ABDOMEN FLAT PLATE EXAM: 2D digital imaging was performed. CLINICAL HISTORY: monitoring left renal calculi,Z87.442. COMPARISON: CR XR ABDOMEN FLAT PLATE from 08/01/2022 TECHNIQUE: Supine views of the abdomen was performed. Three images were obtained. FINDINGS: LUNG BASES: Clear. BOWEL GAS PATTERN: Nondistended. FREE AIR: None. CALCIFICATIONS: There is a 5 mm calcification again seen overlying the mid left kidney consistent wit h nephrolithiasis. The right kidney is largely obscured by overlying bowel. No other urinary tract calculi are identified. OSSEOUS STRUCTURES: Normal for age. OTHER FINDINGS: None. IMPRESSION: Stable left renal calculus. DATA REPOSITORY: RADIATION DOSE DELIVERED:
== END ==
PROVIDERS: PCP Nurse Practitioner Family; Visit Provider Nurse Practitioner Gerontology
DX: Z87.442 Personal history of urinary calculi (principal)
CPT/HCPCS: 74018

== ENCOUNTER 2023-08-11 02:19 | Outpatient (CLI) | payer OTHER, SELFPAY ==
[2023-08-11 13:08] LABS: ALT 40 U/L (14-59); AST 16 U/L (15-37); Albumin 3.8 g/dL (3.4-5.0); Alkaline Phosphatase 97 U/L (46-116); Anion Gap 7.8 mmol/L (3-11); BUN 19 mg/dL (7-18); Bilirubin, Total 0.2 mg/dL (0.2-1.0); CO2 30.2 mmol/L (21.0-32.0); Calcium 10.2 mg/dL (8.5-10.1); Chloride 100 mmol/L (98-107); Estimated GFR 66.95 (mL/min/1.73m2); Glucose 117 mg/dL (74-106); Potassium 4.3 mmol/L (3.5-5.1); Sodium 138 mmol/L (136-145); Total Protein 8.3 g/dL (6.4-8.2)
== END 2023-08-11 02:20 | disposition home or self-care (01) ==
LOC: LBO 02:20
PROVIDERS: PCP Nurse Practitioner Family; Visit Provider Obstetrics & Gynecology Gynecology
DX: N95.1 Menopausal and female climacteric states (principal)
CPT/HCPCS: 36415; 80053

== ENCOUNTER 2023-12-04 09:49 | Day surgery (SDC) | payer OTHER, SELFPAY ==
--- NOTE | 2023-12-03 08:59 | W.PM.DSUDISC ---
Date of service: 12/04/23 Time of Service: 13:06 Discharge Plan Disposition Patient Disposition: Home Condition: Good Discharge Details Reason For Visit: screening colonoscopy Attending Provider: Jun Davidson Primary Care Provider: Jane Pitt Home Meds and New Rx's Prescriptions: Continued Adult 50 Plus Probiotic 4 billion cell capsule 4,000 mmu cells PO DAILY Rx Instructions: administer with a meal clonidine HCl 0.1 mg tablet 0.1 mg PO QHS Qty: 90 3RF cholecalciferol (vitamin D3) 25 mcg (1,000 unit) capsule 25 mcg PO DAILY (DME) pen needle, diabetic [BD Ultra-Fine Short Pen Needle] 31 gauge x 5/16 needle See Rx Instructions .MEDSUPPLY Qty: 100 4RF Rx Instructions: Use with semaglutide pen daily Veozah 45 mg tablet 45 mg PO DAILY Qty: 30 2RF Multivitamin Pack 1 tab PO DAILY Discharge Instructions Instructions: Diverticulosis (GEN), Colorectal Polyps (GEN), Diverticulosis Diet (GEN) Additional Instructions: Viktoriya, we were able to complete your colonoscopy today without any difficulty. I did find 2 polyps in your rectum. Both were quite small, and I removed these both today. I will send them off for testing to help determine the timing for your next colonoscopy. Incidentally, he also have just a little bit of diverticulosis as well. Diverticula are little weak spots in the colon wall that we typically accumulate as we age. I have attached some general information here regarding both diverticulosis as well as colon and rectal polyps. Generally speaking, my advice is to maintain a balanced diet that is rich in fiber, and avoiding symptoms of constipation and dehydration. Once I have the results of the polyp report I will be in touch, otherwise, if you need anything in the interim, please do not hesitate to call 1. If tolerated, consume a soft, low fiber diet for 1-2 days. 2[address] not drive, drink alcohol, operate machinery, make critical decisions, or do activities that require coordination or balance for 24 hours. 3. Because air was put into your colon during the procedure, expelling air from your rectum (passing gas or farting) is normal. 4. You may not have a bowel movement for 1-3 days because of the colonoscopy prep. This is normal. 5. Go directly to the emergency room if you notice any of the following: Develop chills (warm to touch), or if you have a thermometer and your temperature is above 101 Difficulty breathing or difficultly swallowing Persistent vomiting Severe abdominal pain, other than gas cramps Severe chest pain Black, tarry stools Any bleeding ? exceeding one tablespoon 6. Call your physician if the site where your intravenous was started becomes red, swollen, painful, and warm to touch. 7. Your physician has reviewed your pre-procedure medications. Please continue to take those medications as previously ordered. You will be given specific information/education regarding any changes to your medications before leaving. Activity:: Activity as Tolerated Diet:: As Tolerated Discharge Orders Discharge Orders: Discharge Order (Routine); Ordered 12/03/23 Ordered By: Jun Davidson DS: Diagnosis Discharge Diagnosis (1) Encounter for screening colonoscopy: Status: Acute Asessment and Plan: Follow-up on polypectomy results
--- NOTE | 2023-12-03 09:00 | W.COLOREPORT ---
Date of service: 12/04/23 Time of Service: 13:07 Colonoscopy Report Date of procedure: 12/04/23 Pre-op diagnosis general: screening colonoscopy Post-op diagnosis procedure note: other (Diverticulosis, colon polyps) Procedure: Colonoscopy with polypectomy Surgeon: Jun Davidson Anesthesia Type: General:No Airway Estimated blood loss (mL): 10 Pathology: other (0.25 cm rectal polyps x 2) Complications: None Disposition: same day Indications: Viktoriya is 52 years old. She is here for her next screening colonoscopy Prep: Miralax/Dulcolax Procedure Start Time: 12:19 Procedure End Time: 12:48 Retraction Time: 21 Findings: Rare diverticulosis, 0.25 cm rectal polyps x 2 Procedure Description: After the induction of monitored anesthetic care, and with the patient in left lateral decubitus position, I began by performing an external anorectal exam.? Perineum and skin were normal, as was the anal verge.? There was no evidence of external hemorrhoids.? Next, I performed a digital rectal exam.? I did not appreciate any abnormal findings.? Next, I advanced a colonoscope into the rectal vault.? I performed retroflexion.? This appeared normal.? Using insufflation, I then advanced the colonoscope beyond the rectal folds and into the sigmoid colon before advancing towards the cecum.? There were some occasional diverticula in the sigmoid area. The scope was noted to be in the cecum by identification of the ileocecal valve and appendiceal orifice.? I then began withdrawing the colonoscope using repeated irrigation as necessary for full evaluation of the colonic mucosa. ?Once the scope was withdrawn to the level of the rectum, great care was taken to examine portions of the rectal folds.? In the upper portion of the rectal vault or 2 polyps. Both were flat and less than 0.25 cm each. I removed both of these with cold forceps without any issue. There was minimal bleeding. Finally, the scope was withdrawn and the patient was brought to the same-day surgery recovery unit as the anesthetic wore off. ?The findings and instructions were shared with the patient prior to discharge. [place] Bowel Prep [place] Bowel Prep Right Colon: 2 Left Colon: 3 Transverse Colon: 3 Total Score: 8
[2023-12-04 10:15] VITALS: BP 150/92; PULSE 107; RESP 16; TEMP 36.1; O2SAT 96
[2023-12-04] MEDS: Lactated Ringers 1,000 ML 80 ML IV (10:20)
--- NOTE | 2023-12-04 11:51 | W.ANESPRE ---
General Info Date of Service Date Performed: 12/04/23 Height: 5 ft 5 in Weight: 117 kg Body Mass Index (BMI): 42.9 Surgical Procedure: Operation Date: 12/04/23 11:20 Proposed Procedure Side Surgeon delphine Davidson MD Meds Allergies and Home Medications Allergies Allergy/AdvReac Type Severity Reaction Status Date / Time environmental Allergy Uncoded 12/04/23 09:50 Home Medication Medication Instructions Recorded Multivitamin Pack 1 tab PO DAILY 06/11/19 cholecalciferol (vitamin D3) 25 25 mcg PO DAILY 01/07/22 mcg (1,000 unit) capsule pen needle, diabetic 31 gauge x #100 ea 02/03/22/16 (BD Ultra-Fine Short Pen Needle) clonidine HCl 0.1 mg tablet 0.1 mg PO QHS #90 tabs 08/22/23 fezolinetant 45 mg tablet (Veozah) 45 mg PO DAILY #30 tabs 10/16/23 lactobacillus combination no.9 4 4,000 mmu cells PO DAILY 11/22/23 billion cell capsule (Adult 50 Plus Probiotic) Current Visit Medications: Current Medications Generic Name Dose Route Start Last Admin Trade Name Freq PRN Reason Stop Dose Admin Hyoscyamine Sulfate 0.125 mg 12/03/23 09:01 Hyoscyamine 0.125 Mg Sl/Oral/Chew SL 01/02/24 09:00 DIRECTED PRN Ringer's Solution 1,000 mls @ 80 mls/hr 12/04/23 06:00 12/04/23 10:20 IV 12/04/23 23:59 80 mls/hr INFUSION JOSEFINA Administration IV Miscellaneous Supplies 1 each 12/04/23 06:00 Iv Access IV 12/04/23 23:59 DIRECTED JOSEFINA Ondansetron HCl 4 mg 12/03/23 09:01 Ondansetron 4 Mg/2 Ml Vial IVP 01/02/24 09:00 Q4H PRN PRN Nausea / Vomiting Sodium Chloride 0 ml 12/04/23 06:00 Normal Saline Flush 10 Ml Syr IV 12/04/23 23:59 PRN PRN Sodium Chloride 0 ml 12/04/23 06:00 Normal Saline 10 Ml Vial IJ 12/04/23 23:59 DIRECTED PRN Sterile Water 0 ml 12/04/23 06:00 Water,Injection,Sterile 10 Ml Vial IJ 12/04/23 23:59 DIRECTED PRN PFSH Active Problems Active Problems: Problem Status Onset Code Encounter for screening colonoscopy Z12.11 Vasomotor symptoms due to menopause N95.1 Obesity E66.9 Tubular adenoma of colon ~09/2021 D12.6 Serrated adenoma of colon ~09/2021 D12.6 ROSSANA (stress urinary incontinence, female) N39.3 Kidney stones N20.0 Prediabetes R73.03 Hyperlipidemia E78.5 Medical History Medical History Carpal tunnel syndrome of right wrist Thoracic outlet syndrome Surgical History Surgical History H/O resection of rib 1989 S/P section (12/13/93) History of carpal tunnel surgery of right wrist History of colonoscopy (~09/2021) Tobacco Smoking/Tobacco Use Status: Former Tobacco Use Second hand exposure: Yes Alcohol Alcohol Intake: current Alcohol intake frequency: holidays/special occasions only Alcohol type: hard liquor Substance Use Substance use: Never Substance use type: does not use Prental History History 3 Para Hx # Term Pregnancies Multiple births Hx # Pregnancies Ectopic pregnancies AB induced Hx Number of Living Children 3 AB spontaneous Vital Signs and Lab Results Vital Signs Most Recent Vital Signs in EMR: Most Recent Vital Signs Temp Pulse Resp BP Pulse Ox 36.1 C L 107 H 16 150/92 H 96 12/04/23 10:15 12/04/23 10:15 12/04/23 10:15 12/04/23 10:15 12/04/23 10:15 Lab Results Blood Type / Crossmatch: No Data to Display Complete Blood Count: No Data to Display Complete Metabolic Panel: No Data to Display Liver Function Panel: No Data to Display Coagulation Panel: No Data to Display Cardiac Panel: No Data to Display Arterial Blood Gas: No Data to Display Venous Blood Gas: No Data to Display Pancreas Panel: No Data to Display Thyroid Panel: No Data to Display Infectious Disease: No Data to Display Blood Cultures: No Data to Display Toxicology Panel: No Data to Display Panel: No Data to Display Anesthesia Assessment and Plan Anesthesia History Personal History: No History of Anesthesia Complications Family History: No Family History of Anesthesia Complications Exercise Tolerance Exercise Tolerance: Metabolic Equivalents>4 Pertinent Negatives Pertinent Negatives: No Symptoms of GERD, No Major Cardiovascular Symptoms or Complaints and No Major Pulmonary Symptoms or Complaints Cardiac & Pulmonary Exam Cardiac Exam: Normal S1/S2 Heart Sounds Pulmonary Exam: Clear Bilateral Breath Sounds Implantable Cardiac Device Does patient have a Pacemaker or an ICD?: No Airway Exam Known Difficult Airway: No Mallampati Class: 2 Mouth Opening: Normal (> 3cm) Thyromental Distance: Greater than 3 cm Neck Range of Motion: Full ROM Neck Circumference: Thick Teeth Condition: Normal Dentition ASA Classification ASA Score: ASA 3 Emergency Case?: No NPO Status NPO Status: NPO Clears >2 hours, Solids >8 hours Status Status: Not Relevant due to Medical History Anesthesia Plan Resuscitation Status: Full Code Anesthesia Technique: General Anesthesia Airway Planned: Natural Airway Monitors Used: Standard Monitors
[2023-12-04 11:53] VITALS: BMI 42.9
--- NOTE | 2023-12-04 12:47 | BOWEL_PTH ---
PATIENT: Viktoriya Serrato LOC: [facility] U#:[id number] AGE/SX: 52/F ROOM: RE12/04/[address]: Jun Davidson MD : [id number] BED: DIS: 12/04/2023 SPEC #: [id number] RECD: 12/04/23 16:06 STATUS: HAIDER REEarl #: [id number] RENETTA: 12/04/23 12:[address]: Jun Davidson DEPT: Surgical Specimen RECD BY: Lizet Parsons ENTERED: 12/04/23 16:07 SP TYPE: Bowel OTHR DR: ELLIOT Trejo Tissues: 1 - BIOPSY BOWEL Procedures: GROSS AND MICRO LEVEL 4 Comments: [id number]
[2023-12-04 12:56] VITALS: BP 133/82; PULSE 81; RESP 16; TEMP 36.6; O2SAT 94
[2023-12-04 13:13] VITALS: BP 134/81; PULSE 88; RESP 16; TEMP 36.6; O2SAT 98
--- NOTE | 2023-12-04 13:31 | W.ANESPOSTOP ---
Postoperative Evaluation Date, Time and Location Date Performed: 12/04/23 Time Performed: 13:25 Patient Location: Day Surgery Unit Vital Signs Most Recent Imported Vital Signs: Most Recent Vital Signs Temp Pulse Resp BP Pulse Ox 36.6 C 88 16 134/81 98 12/04/23 13:13 12/04/23 13:13 12/04/23 13:13 12/04/23 13:13 12/04/23 13:13 Pain Score Most Recent Pain Score: Most Recent Pain Score Pain Level 0 12/04/23 13:13 Assessment Mental Status: Awake (Alert & Oriented to Patient Baseline) Airway and Respiratory Function: Patent airway with normal (patient baseline) respiratory exam Cardiovascular Function: Hemodynamically Stable Hydration Status: Adequately Hydrated Nausea & Vomiting: No Nausea or Vomiting Pain: Pt. Denies Any Pain Peripheral Nerve Block: Patient did not receive a nerve block
== END 2023-12-04 13:43 | disposition home or self-care (01) ==
LOC: SUR 09:49
PROVIDERS: PCP Nurse Practitioner Family; Visit Provider Surgery
PROC: 0DJD8ZZ Inspection of Lower Intestinal Tract, Via Natural or Artificial Opening Endoscopic (ICD-10-PCS; CPT 45378; principal; 2023-12-04 11:15)
DX: Z12.11 Encounter for screening for malignant neoplasm of colon (principal); K63.5 Polyp of colon; K57.30 Diverticulosis of large intestine without perforation or abscess without bleeding; Z80.0 Family history of malignant neoplasm of digestive organs
CPT/HCPCS: 45380; 88305; J2001; J2704; J3010

== ENCOUNTER 2023-12-08 02:27 | Outpatient (CLI) | payer OTHER, SELFPAY ==
[2023-12-08 14:37] LABS: ALT 56 U/L (14-59); AST 18 U/L (15-37); Albumin 3.8 g/dL (3.4-5.0); Alkaline Phosphatase 76 U/L (46-116); Anion Gap 10.2 mmol/L (3-11); BUN 15 mg/dL (7-18); Bilirubin, Total 0.3 mg/dL (0.2-1.0); CO2 28.8 mmol/L (21.0-32.0); CREATININE 0.9 mg/dL (0.55-1.02); Calcium 9.9 mg/dL (8.5-10.1); Chloride 101 mmol/L (98-107); Estimated GFR 75.97 (mL/min/1.73m2); Glucose 116 mg/dL (74-106); Potassium 3.9 mmol/L (3.5-5.1); Sodium 140 mmol/L (136-145); Total Protein 7.8 g/dL (6.4-8.2)
== END 2023-12-08 02:28 | disposition home or self-care (01) ==
LOC: LBO 02:28
PROVIDERS: PCP Nurse Practitioner Family; Visit Provider Obstetrics & Gynecology Gynecology
DX: N95.1 Menopausal and female climacteric states (principal); Z51.81 Encounter for therapeutic drug level monitoring
CPT/HCPCS: 36415; 80053

== ENCOUNTER 2024-02-01 14:45 | Outpatient (CLI) | payer OTHER, SELFPAY ==
[2024-02-01 14:45] LABS: Abs Immature Grans 0.03 10^3/uL (0.0-0.06); Absolute Basophil Count 0.04 10^3/uL (0.0-0.2); Absolute Eosinophil Count 0.11 10^3/uL (0.0-0.7); Absolute Lymphocyte Count 2.08 10^3/uL (1.2-3.4); Basophils % 0.5; Eosinophils % 1.2; HCT 43.4 % (36.0-46.0); HGB 14.1 g/dL (11.2-15.7); Immature Grans % 0.3; Lymphocytes % 23.5; MCH 26.9 pg (27.0-33.0); MCHC 32.5 % (32.0-36.0); MCV 83 fL (80-95); MPV 8.5 fL (8.0-11.0); Monocytes % 7.9; Neutrophils % 66.6; Platelet Count 354 10^3/uL (130-400); RBC 5.24 10^6/uL (3.93-5.22); RDW 13.9 % (11.7-14.6); RDW-SD 41.9 fL; WBC 8.86 10^3/uL (4.4-10.8)
[2024-02-01 15:19] LABS: Hemoglobin A1C 6.5 % (<5.7)
[2024-02-01 16:24] LABS: ALT 48 U/L (14-59); AST 20 U/L (15-37); Albumin 3.5 g/dL (3.4-5.0); Alkaline Phosphatase 95 U/L (46-116); Anion Gap 11.7 mmol/L (3-11); BUN 24 mg/dL (7-18); Bilirubin, Total 0.3 mg/dL (0.2-1.0); CO2 26.3 mmol/L (21.0-32.0); CREATININE 1.1 mg/dL (0.55-1.02); Calcium 9.2 mg/dL (8.5-10.1); Chloride 102 mmol/L (98-107); Estimated GFR 59.34 (mL/min/1.73m2); Glucose 141 mg/dL (74-106); Potassium 4.4 mmol/L (3.5-5.1); Sodium 140 mmol/L (136-145); TSH 1.45 uIU/Ml (0.36-3.74); Total Protein 7.7 g/dL (6.4-8.2)
== END 2024-02-01 14:46 | disposition home or self-care (01) ==
LOC: LBO 14:46
PROVIDERS: PCP Nurse Practitioner Family; Visit Provider Nurse Practitioner Family
DX: E78.00 Pure hypercholesterolemia, unspecified (principal); I10 Essential (primary) hypertension
CPT/HCPCS: 36415; 80053; 83036; 84443; 85025

== ENCOUNTER → 2024-03-13 03:22 | Outpatient (CLI) | payer OTHER, SELFPAY ==
--- NOTE | 2024-03-13 06:30 | DI.MAMMO_ITS ---
Exam(s) MAMMO SCREENING EXAM: MAMMO SCREENING CLINICAL HISTORY: screening,z12.39 TECHNIQUE: Bilateral full field digital CC and MLO mammographic images were obtained with 3D tomosyn thesis and utilizing computer aided detection (CAD). COMPARISON: Available for comparison. FINDINGS: Masses/Architectural Distortion: None seen. Microcalcifications: No suspicious pleomorphic-type are seen. Skin Thickening/Nipple Retraction: None. IMPRESSION: 1. No significant interval change with no specific features of malignancy noted. 2. Unless there is more urgent need, screening mammography is recommended, as per [employer] guidelines. BI-RADS Category 1 - Negative Breast Density - Category C - Heterogeneously dense Breast density category C or D implies that the patient has dense breast tissue. Dense breast tissue is very common and is not abnormal but dense breast tissue can make it harder to find cancer on a ma mmogram. Also, dense breast tissue may increase their breast cancer risk. This information about the result of the mammogram report was provided to the patient to raise their awareness. Use this report when you speak with the patient about their risks for breast cancer, which includes their family hist ory. At that time, you may recommend for more screening tests (Ultrasound or MRI) as they might be us eful based on their risk. A negative radiographic report should not delay biopsy if a dominant or clinically suspicious mass is present. Up to ten percent of cancers are not identified on mammography. A negative report may reinforce clinical impression. Adenosis and dense breasts may obscure an underlying neoplasm. False positive reports average 6 to 10%. Patient will receive a letter notifying them of these results.
== END ==
PROVIDERS: PCP Nurse Practitioner Family; Visit Provider Obstetrics & Gynecology
DX: Z12.31 Encounter for screening mammogram for malignant neoplasm of breast (principal)
CPT/HCPCS: 77063; 77067

== ENCOUNTER 2024-03-28 01:16 | Outpatient (CLI) | payer OTHER, SELFPAY ==
[2024-03-28 11:40] LABS: ALT 44 U/L (14-59); AST 16 U/L (15-37); Albumin 3.8 g/dL (3.4-5.0); Alkaline Phosphatase 84 U/L (46-116); Anion Gap 11.9 mmol/L (3-11); BUN 20 mg/dL (7-18); Bilirubin, Total 0.3 mg/dL (0.2-1.0); CO2 27.1 mmol/L (21.0-32.0); Calcium 9.1 mg/dL (8.5-10.1); Chloride 102 mmol/L (98-107); Estimated GFR 66.53 (mL/min/1.73m2); Glucose 114 mg/dL (74-106); Potassium 3.9 mmol/L (3.5-5.1); Sodium 141 mmol/L (136-145)
== END 2024-03-28 01:17 | disposition home or self-care (01) ==
LOC: LBO 01:16
PROVIDERS: Obstetrics & Gynecology Gynecology; PCP Nurse Practitioner Family; Visit Provider Nurse Practitioner Family
DX: Z51.81 Encounter for therapeutic drug level monitoring (principal); Z12.11 Encounter for screening for malignant neoplasm of colon
CPT/HCPCS: 36415; 80053

== ENCOUNTER 2024-07-11 04:24 | Outpatient (CLI) | payer OTHER, SELFPAY ==
[2024-07-11 12:45] LABS: Abs Immature Grans 0.03 10^3/uL (0.0-0.06); Absolute Basophil Count 0.02 10^3/uL (0.0-0.2); Absolute Eosinophil Count 0.04 10^3/uL (0.0-0.7); Absolute Lymphocyte Count 2.09 10^3/uL (1.2-3.4); Absolute Monocyte Count 0.65 10^3/uL (0.1-0.8); Absolute Neutrophil Count 5.11 10^3/uL (1.2-6.7); Basophils % 0.3 %; Eosinophils % 0.5 %; HCT 38.7 % (36.0-46.0); HGB 12.7 g/dL (11.2-15.7); Immature Grans % 0.4 %; Lymphocytes % 26.3 %; MCH 28.3 pg (27.0-33.0); MCHC 32.8 % (32.0-36.0); MCV 86 fL (80-95); MPV 8.9 fL (8.0-11.0); Monocytes % 8.2 %; Neutrophils % 64.3 %; Platelet Count 385 10^3/uL (130-400); RBC 4.49 10^6/uL (3.93-5.22); RDW 14.6 % (11.7-14.6); RDW-SD 46.1 fL; WBC 7.94 10^3/uL (4.4-10.8)
[2024-07-11 13:03] LABS: Hemoglobin A1C 6.3 % (<5.7)
[2024-07-11 13:11] LABS: ALT 43 U/L (14-59); AST 17 U/L (15-37); Albumin 3.8 g/dL (3.4-5.0); Alkaline Phosphatase 82 U/L (46-116); Anion Gap 8.8 mmol/L (3-11); BUN 47 mg/dL (7-18); Bilirubin, Total 0.32 mg/dL (0.2-1.0); CO2 30.2 mmol/L (21.0-32.0); CREATININE 1.7 mg/dL (0.55-1.02); Calcium 9.7 mg/dL (8.5-10.1); Chloride 98 mmol/L (98-107); Glucose 110 mg/dL (74-106); Potassium 4.2 mmol/L (3.5-5.1); Sodium 137 mmol/L (136-145); TSH (W/Ref FT4) 1.48 uIU/mL (0.36-3.74); Total Protein 7.9 g/dL (6.4-8.2)
== END 2024-07-11 04:25 | disposition home or self-care (01) ==
LOC: LBO 04:25
PROVIDERS: Obstetrics & Gynecology; PCP Nurse Practitioner Family; Visit Provider Nurse Practitioner Family
DX: R53.83 Other fatigue (principal); R73.03 Prediabetes
CPT/HCPCS: 36415; 80053; 83036; 84443; 85025

== ENCOUNTER 2024-07-25 09:34 | Outpatient (CLI) | payer OTHER, SELFPAY ==
--- NOTE | 2024-07-25 09:30 | DI.RAD_ITS ---
Exam(s) XR ABDOMEN FLAT PLATE EXAM: XR ABDOMEN FLAT PLATE CLINICAL HISTORY: monitoring left renal calculi N20.0 CALCULUS OF KIDNEY. TECHNIQUE: 2D digital imaging was performed. COMPARISON: CT CT ABDOMEN PELVIS WO/W from 04/26/2019 CR XR ABDOMEN FLAT PLATE from 07/31/2020 FINDINGS: Single AP supine view of the abdomen-pelvis compared to July 2022 and July 2023. The bowel gas pattern is nonspecific in the supine position. The size and position of the calculus in the left kidney (seen on CT scan of April 2019) is unchanged. This is at the level of the lateral cortex at the interpolar level. It measures approximately 5 mm , unchanged. There are no additional radiopaque calculi seen over either kidney nor along the course of the ureters. IMPRESSION: Stable position and appearance of solitary left kidney calculus. DATA REPOSITORY: RADIATION DOSE DELIVERED:
== END 2024-07-25 09:54 ==
LOC: DI 09:35
PROVIDERS: PCP Nurse Practitioner Family; Visit Provider Nurse Practitioner Gerontology
DX: N20.0 Calculus of kidney (principal)
CPT/HCPCS: 74018

== ENCOUNTER 2024-10-28 21:35 | Emergency (ER) | payer OTHER, SELFPAY ==
[2024-10-28 21:39] VITALS: BP 168/93; PULSE 110; RESP 20; TEMP 36.6; O2SAT 96
--- NOTE | 2024-10-28 22:28 | DI.RAD_ITS ---
Exam(s) XR TOE RT GREAT EXAM: XR TOE RT GREAT CLINICAL HISTORY: redness, pain. TECHNIQUE: 2D digital imaging was performed. COMPARISON: No exams were available for comparison FINDINGS: 3 views There is some soft tissue swelling throughout the great toe no evidence of fracture or dislocation or radiopaque foreign bodies. Mild degenerative changes. No evidence of osteomyelitis. IMPRESSION: Soft tissue edema. No soft tissue gas seen. No evidence of fracture or osteomyelitis DATA REPOSITORY: RADIATION DOSE DELIVERED:
--- NOTE | 2024-10-28 22:43 | ED.GENADUL_ITS ---
Discharge Plan Disposition Patient Disposition: Home Condition: Stable Discharge Details Clinical Impression: Cellulitis Primary Care Provider: Carla Sparrow ED Provider: Lizet Fontaine Home Meds and New Rx's Prescriptions: New cefuroxime axetil 500 mg tablet 500 mg PO BID Qty: 14 0RF Continued Adult 50 Plus Probiotic 4 billion cell capsule 4,000 mmu cells PO DAILY Rx Instructions: administer with a meal lisinopril 20 mg tablet 20 mg PO DAILY cholecalciferol (vitamin D3) 25 mcg (1,000 unit) capsule 25 mcg PO DAILY (DME) pen needle, diabetic [BD Ultra-Fine Short Pen Needle] 31 gauge x 5/16 needle See Rx Instructions .MEDSUPPLY Qty: 100 4RF Rx Instructions: Use with semaglutide pen daily metformin 500 mg tablet 500 mg PO DAILY Veozah 45 mg tablet 45 mg PO DAILY Qty: 60 3RF Multivitamin Pack 1 tab PO DAILY hydrochlorothiazide 50 mg tablet 50 mg PO DAILY Discharge Instructions Instructions: Cellulitis (Skin Infection), Adult ED Additional Instructions: Take antibiotic as prescribed, yogurt daily while on antibiotic Elevate your foot as much as possible Recheck in 48 hours It will likely take 48 hours before you notice a difference in the redness in your foot, the antibiotic does not become therapeutic until this time, do not be alarmed Should he develop systemic signs of illness such as fever, chills, significant spread of redness, or vomiting please be reevaluated immediately Stand Alone Forms: Work Release Referrals: Carla Sparrow [Primary Care Provider] - Discharge Data Discharge Date/Time-TO BE ENTERED AT DEPARTURE: 10/28/24 23:51 HPI General Date/Time Provider Initiated Documentation: 10/28/24 21:36 . HPI Narrative: This 53-year-old female presents with redness swelling and blister to right great toe which started this morning per patient. States she has metabolic syndrome but has not been diagnosed with diabetes. She states the site is painful. She did have her a pedicure 3 days ago and is wondering if this is contributing to the infection. She denies any fever or chills. She denies history of similar symptoms in the past has not been on antibiotic recently. Related Data Home Medications ?Medication ?Instructions ?Recorded ?Confirmed Multivitamin Pack 1 tab PO DAILY 06/11/19 10/28/24 cholecalciferol (vitamin D3) 25 25 mcg PO DAILY 01/07/22 10/28/24 mcg (1,000 unit) capsule pen needle, diabetic 31 gauge x #100 ea 02/03/22 10/28/24 5/16 (BD Ultra-Fine Short Pen Needle) lactobacillus combination no.9 4 4,000 mmu cells PO DAILY 11/22/23 10/28/24 billion cell capsule (Adult 50 Plus Probiotic) metformin 500 mg tablet 500 mg PO DAILY 02/22/24 10/28/24 lisinopril 20 mg tablet 20 mg PO DAILY 07/10/24 10/28/24 fezolinetant 45 mg tablet (Veozah) 45 mg PO DAILY #60 tabs 08/23/24 10/28/24 cefuroxime axetil 500 mg tablet 500 mg PO BID #14 tabs 10/28/24 hydrochlorothiazide 50 mg tablet 50 mg PO DAILY 10/28/24 10/28/24 Previous Rx's ?Medication ?Instructions ?Recorded pen needle, diabetic 31 gauge x #100 ea 02/03/22 516 (BD Ultra-Fine Short Pen Needle) fezolinetant 45 mg tablet (Veozah) 45 mg PO DAILY #60 tabs 08/23/24 cefuroxime axetil 500 mg tablet 500 mg PO BID #14 tabs 10/28/24 Allergies Allergy/AdvReac Type Severity Reaction Status Date / Time environmental Allergy Other (See Uncoded 10/28/24 21:42 Comment) General Stated Complaint: RashLesion CLAUDIA: 4 Exam Narrative Exam Narrative: Right great toe with erythema and blister, approximately 2 inch region, not circumferential, no crepitus, no lymphangitis Course Vital Signs Vital signs: Vital Signs Temperature 36.6 C 10/28/24 21:39 Pulse 110 H 10/28/24 21:39 Respiratory Rate 20 10/28/24 21:39 Blood Pressure 168/93 H 10/28/24 21:39 Pulse Oximetry 96 10/28/24 21:39 Temperature 36.6 C 10/28/24 21:39 Pulse 110 H 10/28/24 21:39 Respiratory Rate 20 10/28/24 21:39 Respiratory Effort Normal 10/28/24 21:41 Blood Pressure 168/93 H 10/28/24 21:39 Blood Pressure Position Sitting 10/28/24 21:39 Pulse Oximetry 96 10/28/24 21:39 Oxygen Delivery Method Room Air 10/28/24 21:39 Oxygen Flow Rate 0 10/28/24 21:39 Pain Level 2 10/28/24 21:39 Medical Decision Making 53-year-old female presenting with right great toe pain with redness. Blood glucose 115. X-ray of right great toe does not show evidence of foreign body or any other pathology. Patient be started on Ceftin. I did obtain a wound culture from the blister which is draining. Patient will need recheck in 48 hours. Return precautions reviewed and patient expressed understanding Quality:SDOH Health Related Social Needs: 2 No Data to Display PFSH All Active Problems (Updated 10/28/24 @ 23:04 by ANNETTE Sanderson) Cellulitis (Acute) Fatigue (Acute) Screening exam for skin cancer (Acute) Sleep disturbance (Acute) Encounter for medication monitoring (Acute) Encounter for screening colonoscopy (Acute) Vasomotor symptoms due to menopause (Acute) Obesity (Chronic) Tubular adenoma of colon (Chronic ~09/2021) Serrated adenoma of colon (Chronic ~09/2021) ROSSANA (stress urinary incontinence, female) (Chronic) Kidney stones (Chronic) Prediabetes (Chronic) Hyperlipidemia (Chronic) Medical History (Updated 10/28/24 @ 23:04 by ANNETTE Sanderson) Hyperplastic colon polyp Carpal tunnel syndrome of right wrist Thoracic outlet syndrome Surgical History (Updated 12/25/23 @ 15:14 by Carole Feliciano RN) H/O resection of rib 1989 S/P section (12/13/93) History of carpal tunnel surgery of right wrist History of colonoscopy (~09/2021) 11/2023 hyperplastic polyps Family History Mother , at 62 from MVA No problems noted. Father Heart disease Myocardial infarction Sister Endometriosis Sister No problems noted. Brother No problems noted. Son No problems noted. Son No problems noted. Daughter No problems noted. Maternal Grandfather Colon cancer Maternal Grandmother No problems noted. Paternal Grandfather Skin cancer Paternal Grandmother Parkinson disease Social History Smoking/Tobacco Use Status: Former Tobacco Use Quit Date: 01/01/94 Second Hand Exposure: Yes Smoking risk assessment performed?: Yes Alcohol Intake: current Alcohol Intake frequency: holidays/special occasions only Alcohol type: hard liquor Drug use: Never Substance use type: does not use Caregiver/Support person: No Household members: spouse and children Housing: house Pets and animals: Yes Pets and animals: cat(s), dog(s) and horse(s) Sexually active: Yes Do you think of yourself as: straight/heterosexual Current gender identity: female What is your relationship status?: How often do you talk on the phone with friends or family?: three or more times per week How often do you get together with friends or relatives?: three or more times per week How often do you attend rastafarian or hindu services?: 4 or more times per year Do you belong to any clubs or organized social groups?: no Panel score (0-1 are the most socially isolated patients): 3 What type of physical activity do you participate in: walking and yoga Duration: 30-45 minutes/day Frequency: 5-6 times per week Katelynn/Presybeterian: Quaker Special katelynn needs: No Do you feel safe at home: Yes Do you feel safe in your relationship?: Yes History History 3 Para Hx # Term Pregnancies Multiple births Hx # Pregnancies Ectopic pregnancies AB induced Hx Number of Living Children 3 AB spontaneous
[2024-10-28] MEDS: Cefuroxime 500 MG TAB 1000 MG PO (23:25)
[2024-10-28 23:35] VITALS: BP 148/88; PULSE 90; RESP 16; O2SAT 98
--- NOTE | 2024-10-29 00:15 | DI.VRAD_ITS ---
PROCEDURE INFORMATION: Exam: XR Right Toe(s) Exam date and time: 10/28/2024 10:47 PM Age: 53 years old Clinical indication: Cellulitis; Toes; Right; Patient HX: Redness, pain great toe TECHNIQUE: Imaging protocol: Radiologic exam of the right toes. Views: Minimum 2 views. COMPARISON: No relevant prior studies available. FINDINGS: Bones/joints: See Soft tissues finding. Soft tissues: Suggestion of soft tissue edema of the distal foot and toes. No discernible soft tissue gas. No osseous erosion to indicate osteomyelitis. IMPRESSION: Suggestion of soft tissue edema of the distal foot and toes. No discernible soft tissue gas. No osseous erosion to indicate osteomyelitis. Dictated and Authenticated by: Rober Rivera MD. Ordering:KAR Hinds MD
== END 2024-10-28 23:51 | disposition home or self-care (01) ==
PROVIDERS: Emergency Provider Physician Assistant; PCP Nurse Practitioner Family
DX: L03.031 Cellulitis of right toe (principal); E78.5 Hyperlipidemia, unspecified; Z87.891 Personal history of nicotine dependence
CPT/HCPCS: 82962; 99284; 73660; 87070; 87205

== ENCOUNTER 2024-11-07 14:30 | Outpatient (CLI) | payer OTHER, SELFPAY ==
[2024-11-07] MEDS: Inhaler, Assist Device 1 EACH MC (16:04)
[2024-11-07] MEDS: Levalbuterol HFA 15 GM INH 4 PUFF IH (16:04)
--- NOTE | 2024-11-08 15:57 | W.PFT ---
Date of service: 11/07/24 Time of Service: 14:37 Pulmonary Function Test Result Indications: Chronic cough Interpretation Spirometry: No airflow limitation. No bronchodilator response Lung Volumes: Normal lung volumes Diffusion Capacity: Normal diffusion Airway Pressure: Normal airways resistance Clinical Correlation therefore is recommended.
== END 2024-11-07 14:31 | disposition home or self-care (01) ==
PROVIDERS: PCP Nurse Practitioner Family; Visit Provider Nurse Practitioner Family
DX: R05.3 Chronic cough (principal)
CPT/HCPCS: 94060; 94726; 94729

== ENCOUNTER 2025-03-27 00:49 | Outpatient (CLI) | payer OTHER, SELFPAY ==
--- NOTE | 2025-03-27 12:36 | DI.MAMMO_ITS ---
Exam(s) MAMMO SCREENING EXAM: MAMMO SCREENING CLINICAL HISTORY: screening,z12.39. TECHNIQUE: Bilateral full field digital CC and MLO mammographic images were obtained with 3D tomosyn thesis and utilizing computer aided detection (CAD). COMPARISON: Prior mammograms dating back to 2019 were reviewed. FINDINGS: There has been no significant change in the appearance and distribution of the fibroglandular tissue. There are no new spiculated masses. A group of microcalcifications in the upper quadrant of the left breast and stable when compared to prior mammograms. There are no new spiculated masses nor new malignant appearing microcalcification groups. There is no significant architectural distortion nor skin thickening-retraction. IMPRESSION: Stable benign-appearing findings. No radiographic evidence of malignancy. BI-RADS Category 2 - Benign Findings Breast Density - Category C - The breast are heterogeneously dense, which may obscure small masses. Breast density Category C or D implies that the patient has dense breast tissue. Dense breast tissue can make it harder to find cancer on a mammogram. Dense breast tissue is also associated with an incr eased risk of breast cancer. This information about the result of the mammogram report was provided to the patient to raise their awareness. Use this report when you speak with the patient about their risks for breast cancer, which includes their family history. At that time, you may recommend additional screening tests (Ultrasoun d or MRI) as these tests may add significant information. A negative radiographic report should not delay biopsy if a dominant or clinically suspicious mass is present. Up to ten percent of cancers are not identified on mammography. A negative report may reinforce clinical impression. Adenosis and dense breasts may obscure an underlying neoplasm. False positive reports average 6 to 10%. Patient will receive a letter notifying them of these results.
== END 2025-03-27 01:09 ==
LOC: DI 00:49
PROVIDERS: PCP Nurse Practitioner Family; Visit Provider Obstetrics & Gynecology
DX: Z12.31 Encounter for screening mammogram for malignant neoplasm of breast (principal); R92.333 Mammographic heterogeneous density, bilateral breasts; D24.2 Benign neoplasm of left breast
CPT/HCPCS: 77063; 77067

== ENCOUNTER 2025-06-27 07:53 | Outpatient (CLI) | payer OTHER, SELFPAY ==
--- NOTE | 2025-06-27 08:46 | DI.RAD_ITS ---
Exam(s) XR FOOT RT COMPLETE EXAM: XR FOOT RT COMPLETE CLINICAL HISTORY: heel pain/crepitus in dorsum of R foot, pain rt heel, joint crepitus. TECHNIQUE: 2D digital imaging was performed. COMPARISON: CR,XR XR TOE RT GREAT from 10/28/2024 FINDINGS: 3 views No evidence of fracture or diastasis of the Lisfranc joint. Great toe metatarsophalangeal joint is unremarkable. There is a small 1 millimeter calcification medial to the navicular tuberosity, similar to previous. No hallux valgus. There is a moderate size inferior calcaneal spur. There is also mild calcification in the mid plantar fascia. There is also a posterior enthesophyte on the Achilles insertional aspect on the posterior calcaneus. IMPRESSION: As above but no acute osseous findings in the foot. DATA REPOSITORY: RADIATION DOSE DELIVERED:
--- NOTE | 2025-06-27 08:46 | DI.RAD_ITS ---
Exam(s) XR FOOT LT COMPLETE EXAM: XR FOOT LT COMPLETE CLINICAL HISTORY: baseline/comparison XR, foot pain, M79.673. TECHNIQUE: 2D digital imaging was performed. COMPARISON: CR XR FOOT RT COMPLETE from 06/27/2025 FINDINGS: 3 views No evidence of fracture or diastasis of the Lisfranc joint. Great toe metatarsophalangeal joint appears unremarkable. Accessory ossicles noted lateral to the cuboid bone. There is a large inferior calcaneal spur. There is enthesophyte on the posterior calcaneus Achilles insertion site. IMPRESSION: As above but no acute osseous findings in the left foot. DATA REPOSITORY: RADIATION DOSE DELIVERED:
== END 2025-06-27 08:13 ==
LOC: DI 07:54
PROVIDERS: PCP Nurse Practitioner Family; Visit Provider Podiatrist
DX: M25.572 Pain in left ankle and joints of left foot; M25.571 Pain in right ankle and joints of right foot
CPT/HCPCS: 73630

== ENCOUNTER 2025-06-27 08:59 | Outpatient (CLI) | payer OTHER, SELFPAY ==
[2025-06-27 09:32] LABS: Abs Immature Grans 0.01 10^3/uL (0.0-0.06); HCT 39.8 % (36.0-46.0); HGB 12.9 g/dL (11.2-15.7); Immature Grans % 0.2 %; MCH 26.5 pg (27.0-33.0); MCHC 32.4 % (32.0-36.0); MCV 82 fL (80-95); MPV 9.2 fL (8.0-11.0); Platelet Count 364 10^3/uL (130-400); RBC 4.87 10^6/uL (3.93-5.22); RDW 14.3 % (11.7-14.6); RDW-SD 42.1 fL; WBC 6.66 10^3/uL (4.4-10.8)
[2025-06-27 10:05] LABS: Hemoglobin A1C 6.3 % (<5.7)
[2025-06-27 10:29] LABS: ALT 36 U/L (14-59); AST 20 U/L (15-37); Albumin 3.6 g/dL (3.4-5.0); Alkaline Phosphatase 91 U/L (46-116); Anion Gap 8.1 mmol/L (3-11); BUN 33 mg/dL (7-18); Bilirubin, Total 0.3 mg/dL (0.2-1.0); CO2 30.9 mmol/L (21.0-32.0); Calcium 10.1 mg/dL (8.5-10.1); Calculated LDL 202 mg/dL (<100); Chloride 101 mmol/L (98-107); Cholesterol 295 mg/dL (<200); Estimated GFR 75.03 (mL/min/1.73m2); Glucose 108 mg/dL (74-106); HDL Cholesterol 70 mg/dL (>or=50); Potassium 3.7 mmol/L (3.5-5.1); Sodium 140 mmol/L (136-145); TSH 1.94 uIU/mL (0.36-3.74); Total Protein 7.9 g/dL (6.4-8.2); Triglyceride 119 mg/dL (<150); Vitamin B12 720 pg/mL (193-986)
[2025-06-27 19:11] LABS: FSH 83.2 mIU/mL (See Note); LH 65.4 mIU/mL (See Note)
== END 2025-06-27 09:00 | disposition home or self-care (01) ==
LOC: LBO 08:59
PROVIDERS: PCP Nurse Practitioner Family; Visit Provider Nurse Practitioner Family
DX: N95.1 Menopausal and female climacteric states (principal); E66.01 Morbid (severe) obesity due to excess calories
CPT/HCPCS: 36415; 80053; 80061; 83090; 82607; 83001; 83002; 83036; 84146; 84443; 85025

== ENCOUNTER 2025-07-24 09:37 | Outpatient (CLI) | payer OTHER, SELFPAY ==
--- NOTE | 2025-07-24 12:30 | DI.RAD_ITS ---
Exam(s) XR ABDOMEN FLAT PLATE EXAM: 2D digital imaging was performed. CLINICAL HISTORY: hx of renal cacluli - monitoring stones Z87.442. COMPARISON: CR XR ABDOMEN FLAT PLATE from 07/25/2024 TECHNIQUE: Supine views of the abdomen performed. FINDINGS: BOWEL GAS PATTERN: Nondistended. Moderate to increased quantity of stool. CALCIFICATIONS: 5 millimeter calcification projects in the mid left kidney. The right kidney is mainly obscured by overlying stool. Calcifications in the right low pelvis conned are consistent with phleboliths. OSSEOUS STRUCTURES: Unremarkable for age. Visualized lung bases: Clear. IMPRESSION: 1. Nonobstructive bowel gas pattern. 2. Stable appearance of left renal calculus. DATA REPOSITORY: RADIATION DOSE DELIVERED:
== END 2025-07-24 09:57 ==
LOC: DI 09:38
PROVIDERS: PCP Nurse Practitioner Family; Visit Provider Nurse Practitioner Gerontology
DX: Z87.442 Personal history of urinary calculi (principal); Z09 Encounter for follow-up examination after completed treatment for conditions other than malignant neoplasm
CPT/HCPCS: 74018